=== PATIENT | female | born 1980 | race Caucasian/White ===

== ENCOUNTER 2020-12-15 12:43 | Emergency (ER) | payer MEDICAID, SELFPAY ==
[2020-12-15 12:53] VITALS: BP 176/121; PULSE 109; RESP 18; TEMP 36.8; O2SAT 97; BMI 31.2
[2020-12-15 12:56] VITALS: RESP 18
--- NOTE | 2020-12-15 13:04 | ED_ITS ---
HPI - General Adult General: Chief complaint: General Medical Stated complaint: sore throat, cough, nausea Time Seen by Provider: 12/15/20 12:58 History of Present Illness: HPI narrative: Patient complains about sore throat sinus drainage and then also has symptoms of UTI. Been going on approximately 2 days. Onset (ago): day(s) Associated symptoms: Deny chest pain, dyspnea, headache(s), nausea, rash or vomiting Review of Systems Const: Denies: fever(s), chills or body aches Eyes: Denies: change in vision or blurry vision ENMT: Reports: throat pain and nasal congestion Card: Denies: chest pain or dyspnea on exertion Resp: Denies: dyspnea, productive cough or non-productive cough GI: Denies: abdominal pain, nausea or vomiting : Reports: urinary frequency and urinary urgency Musc: Denies: extremity pain Skin/Breast: Denies: rash Neuro: Denies: headache(s) Psych: Denies: anxiety or depression [place]/Lymph: Denies: easy bruising PFSH ED PFSH: Social History (Updated 07/03/19 @ 10:26 by Genny Garcia LPN) Smoking and tobacco status: former smoker Alcohol intake: never Physical Exam Const: COMMON NORMALS: no acute distress, average body habitus and patient oriented x3 HENMT: COMMON NORMALS: normocephalic HEAD & SCALP: normal to inspection and normocephalic FACE & SINUS: normal facial exam NOSE: Nasal discharge present clear THROAT: posterior oropharynx abnormal erythema Eye: COMMON NORMALS: conjunctivae normal GENERAL EYE: appearance normal, both eyes and all related structures CONJUNCTIVA: Yes conjunctivae normal Neck/C-Spine: COMMON NORMALS: no JVD Chest: COMMONS NORMALS: normal inspection of the chest Resp: COMMON NORMALS: normal respiratory effort and clear to auscultation bilaterally AUSCULTATION: clear to auscultation bilaterally Cardio: COMMON NORMALS: no JVD and regular rhythm RATE: tachycardic RHYTHM: regular rhythm GI: COMMON NORMALS: Normal to inspection, nondistended, normoactive bowel sounds present Extremity: COMMON NORMALS: normal to inspection and full ROM Neuro: COMMON NORMALS: patient oriented x3 Course Vital Signs: Vital signs: Vital Signs Temperature 98.2 F 12/15/20 12:53 Pulse Rate 109 H 12/15/20 12:53 Respiratory Rate 18 12/15/20 12:53 Blood Pressure 176/121 12/15/20 12:53 Pulse Oximetry 97 12/15/20 12:53 Discharge Plan Discharge Patient Disposition: Home Clinical Impression: UTI (urinary tract infection) Qualifiers: Urinary tract infection type: acute cystitis Hematuria presence: without hematuria Qualified Code(s): N30.00 - Acute cystitis without hematuria Acute pharyngitis Qualifiers: Pharyngitis/tonsillitis etiology: unspecified etiology Qualified Code(s): J02.9 - Acute pharyngitis, unspecified Condition: Stable Prescriptions: New cephalexin 500 mg capsule 500 mg PO Q8H 7 Days Qty: 21 RF: 0 Tessalon Perles 100 mg capsule 100 mg PO TID PRN (Reason: cough) Qty: 10 RF: 0 No Action gabapentin 100 mg capsule 100 mg PO TID RF: 0 omeprazole 20 mg capsule,delayed release(DR/EC) 20 mg PO BID RF: 0 lisinopril 20 mg tablet 20 mg PO BID RF: 0 alprazolam 0.5 mg tablet 0.5 mg PO BID RF: 0 tramadol 50 mg tablet 50 mg PO TID PRNRF: 0 Discharge Orders: Discharge ED (Routine); Ordered 12/15/20 Ordered By: Sb Rucker Discharge Diet: Usual diet Discharge Activity: Resume usual activity Patient Instructions: Urinary Tract Infection in Women (ED), Pharyngitis (ED) Activity Restrictions/Additional Instructions: Follow-up with medical provider as directed. Take medications as prescribed. Return to the ER or your medical provider if condition worsens. Please read and understand discharge instructions. If any questions ask please. Coding Level of Care Code ED Machine Preservative Filler for Ivetg Fwd Exam Comprehensive
[2020-12-15 13:47] VITALS: RESP 18
== END 2020-12-15 13:47 | disposition home or self-care (01) ==
PROVIDERS: Emergency Provider Nurse Practitioner Family
DX: J02.9 Acute pharyngitis, unspecified (principal); N30.00 Acute cystitis without hematuria; Z87.891 Personal history of nicotine dependence
CPT/HCPCS: 99281

== ENCOUNTER 2021-04-18 13:26 | Emergency (ER) | payer MEDICAID, SELFPAY ==
[2021-04-18 13:36] VITALS: BP 202/158; PULSE 102; RESP 16; TEMP 36.8; O2SAT 97; BMI 33.2
--- NOTE | 2021-04-18 13:55 | ED_ITS ---
HPI - Abdominal Pain General: Chief Complaint: Abdominal Pain Stated Complaint: severe abd pains n/v Time Seen by Provider: 04/18/21 13:47 Source: patient Mode of arrival: ambulatory Limitations: no limitations History of Present Illness: HPI narrative: Patient is a 40-year-old female who presents to ED today with a complaint of diffuse abdominal pain over the past few days . Patient states it feels like she might have pancreatitis again. Patient states pain has been fairly constant and has been associated with nausea and vomiting. She states she has had about 10 episodes of nonbloody, nonbilious emesis today. She is reporting normal bowel movements. No urinary complaints. No fever, chills, body aches. She was noted to be extremely hypertensive in triage. She states she has not taken her lisinopril in a while secondary to being out of this medication. She reports chronic history of GERD in which she treats with omeprazole. Patient does report alcohol use several times weekly. Denies NSAID use. MD elicited complaint: abdominal pain Onset (ago): day(s) Pain Consistency: constant Location: Diffuse Radiation: none Migration to: no migration Exacerbating factors: nothing Relieving factors: nothing Associated Symptoms: Reports heartburn (chronic-takes omeprazole), nausea and v omiting; Denies change in bowel habits, change in stool character, chills, coffee ground emesis, diarrhea, dysuria, fever(s), hematochezia, hematemesis, melena and syncope Related Data: Patient : No Review of Systems Const: Denies: fever(s), chills, body aches, fatigue or malaise Eyes: Denies: change in vision ENMT: Denies: throat pain, odynophagia, nasal discharge or nasal congestion Card: Denies: chest pain, palpitations, irregular heart rhythm, edema, swelling of feet/ankles, lightheadedness, syncope, pre-syncope, dyspnea on exertion, orthopnea, leg pain with exertion or acrocyanosis Resp: Denies: dyspnea GI: Reports: abdominal pain, nausea, vomiting and heartburn (chronic-takes omeprazole); Denies: hematemesis, coffee ground emesis, diarrhea, change in bowel habits, change in stool character, hematochezia or melena : Denies: flank pain, difficulty voiding, dysuria, urinary frequency, urinary urgency, urinary hesitancy, vaginal bleeding or pelvic pain Musc: Denies: neck pain, back pain, extremity pain or joint pain Skin/Breast: Denies: rash Neuro: Denies: headache(s), numbness in extremities, weakness in extremities, sensory changes, lack of coordination, frequent falls, dizziness, vertigo, confusion, behavioral changes, Slurred speech present, difficulty communicating thoughts or seizure-like activity PFS ED PFSH: Social History (Updated 07/03/19 @ 10:26 by Genny Garcia LPN) Smoking and tobacco status: former smoker Alcohol intake: never Physical Exam Const: COMMON NORMALS: no acute distress, patient oriented x3, no limitations and alert GENERAL APPEARANCE: cooperative NUTRITIONAL APPEARANCE: obese ORIENTATION/CONSCIOUSNESS: Yes awake, Yes oriented to person, Yes oriented to place and Yes oriented to time HENMT: COMMON NORMALS: normocephalic and atraumatic HEAD & SCALP: normal to inspection, normocephalic and atraumatic Resp: COMMON NORMALS: normal respiratory effort and clear to auscultation bilaterally AUSCULTATION: clear to auscultation bilaterally Cardio: COMMON NORMALS: regular rate and regular rhythm RATE: regular rate RHYTHM: regular rhythm GI: COMMON NORMALS: Normal to inspection, nondistended, normoactive bowel sounds present, Soft to palpation, No hepatosplenomegaly present and no masses INSPECTION: Yes normal to inspection and No visible pulsation AUSCULTATION: Yes normoactive bowel sounds PALPATION: Yes Soft to palpation, Yes No hepatosplenomegaly present and No Pulsatile mass present OTHER: patient was talking the whole time during abdominal exam and did not grimace or guard at all during light/deep palpation : COMMON NORMALS: Yes no CVA tenderness BLADDER/KIDNEY EXAM: Yes no CVA tenderness Back/Pelvis: COMMON NORMALS: no CVA tenderness, thoracic and lumbar spine normal to inspection, no thoracic nor lumbar tenderness and thoraco-lumbar ROM normal LUMBAR SPINE/LOWER BACK: Yes straight leg raise negative bilaterally Extremity: COMMON NORMALS: normal to inspection GENERAL: Yes normal exam except as noted Neuro: ELIA COMA SCALE: document GCS findings Elia coma scale eye opening: Spontaneous [place] coma scale verbal response: Orientated [place] coma scale motor response: Obey commands Elia coma scale total score: 15 COMMON NORMALS: patient oriented x3, CN's II-XII intact bilaterally, moves all extremities, no focal motor deficits, no sensory deficits noted and gait normal SENSORIUM/ORIENTATION: Yes alert, Yes oriented to person, Yes oriented to place and Yes oriented to time Skin: COMMON NORMALS: negative for no rashes or lesions noted GENERAL SKIN EXAM: rashes and/or lesions noted Course Vital Signs: Vital signs: Vital Signs Temperature 98.2 F 04/18/21 13:36 Pulse Rate 87 04/18/21 17:16 Respiratory Rate 14 04/18/21 14:57 Blood Pressure 192/97 04/18/21 17:16 Pulse Oximetry 96 04/18/21 17:16 MDM - Abdominal Pain MDM Narrative: Medical decision making narrative: Patient is a 40-year-old female here for diffuse abdominal pain over the past few days. Physical exam does not reveal significant abdominal tenderness. She has positive bowel sounds. Labs are unremarkable. UA does show findings consistent with UTI. This will be cultured. CT scan showing probable enteritis. Will place patient on antibiotics for the UTI and recommend clear liquid/bland diet with advancing as tolerated. Return to ED precautions given. She will be given refills for her BP med and recommend she keep BP log to discuss with PCP. BP 160s/90s during my last assessment. She was given oral K+ for her mild hypokalemia. Mag normal. Recommend this gets rechecked through PCP as well. Lab Data: Labs: Lab Results 04/18/21 04/18/21 04/18/21 14:54 14:54 14:54 WBC 9.3 10^3/uL 10^3/ uL (4.0-10.0) RBC 5.24 10^6/uL 10^6 /uL (4.1-5.3) Hgb 15.9 g/dL H g/dL (11.5-15.3) Hct 47.8 % H % (37.0-47.0) MCV 91.2 fl fl (81-99) MCH 30.3 pg pg (28.0-34.0) MCHC 33.3 g/dL g/dL (30.0-36.0) RDW 13.0 % % (12.1-15.1) Plt Count 320 10^3/cmm 10^3 /cmm (130-400) MPV 10.7 fL H fL (7.4-10.4) Neut % (Auto) 68.0 % % Lymph % (Auto) 23.3 % % [place] % (Auto) 6.5 % % Eos % (Auto) 1.1 % % Baso % (Auto) 0.9 % % Neut # (Auto) 6.34 10^3/uL 10^3 /uL (1.8-7.7) Lymph # (Auto) 2.2 10^3/uL 10^3/ uL (0.8-4.8) [place] # (Auto) 0.6 10^3/uL 10^3/ uL (0.2-0.9) Eos # (Auto) 0.1 10^3/uL 10^3/ uL (0.0-0.8) Baso # (Auto) 0.1 10^3/uL 10^3/ uL (0.0-0.1) Nucleated RBC % (a uto) 0 % % Nucleated RBCs # 0.0 /100WBC /100W BC Sodium 137 mmol/L mmol/L (136-145) Potassium 3.1 mmol/L L mmol /L (3.5-5.1) Chloride 97 mmol/L L mmol/ L (98-107) Carbon Dioxide 30 mmol/L H mmol/ L (22-29) Anion Gap 13.1 (5-19) BUN 7 mg/dL mg/dL (6-20) Creatinine 0.5 mg/dL mg/dL (0.5-0.9) GFR Calculation 135.3 mL/min H mL /min (90-130) Glucose 103 mg/dL mg/dL (65-115) Calculated Osmolal ity 282 mOsm/kg L mOs m/kg (285-295) Calcium 9.2 mg/dL mg/dL (8.5-10.5) Magnesium Total Bilirubin 0.5 mg/dL mg/dL (0.15-1.2) AST 37 U/L H U/L (0-32) ALT 30 U/L U/L (0-33) Alkaline Phosphata se 80 IU/L IU/L (35-105) Total Protein 7.4 g/dL g/dL (6.6-8.7) Albumin 4.1 g/dL g/dL (3.5-5.2) Globulin 3.3 g/dL g/dL (1.3-4.6) Lipase 46 U/L U/L (13-60) HCG, Qual Negative (Negative) Urine Color Urine Appearance Urine pH Ur Specific Gravit y Urine Protein Urine Glucose (UA) Urine Ketones Urine Blood Urine Nitrate Urine Bilirubin Urine Urobilinogen Ur Leukocyte Naty ase Urine RBC Urine WBC Ur Squamous Epith Cells Amorphous Sediment Urine Bacteria Urine Mucus 04/18/21 04/18/21 14:54 15:55 WBC RBC Hgb Hct MCV MCH MCHC RDW Plt Count MPV Neut % (Auto) Lymph % (Auto) [place] % (Auto) Eos % (Auto) Baso % (Auto) Neut # (Auto) Lymph # (Auto) [place] # (Auto) Eos # (Auto) Baso # (Auto) Nucleated RBC % (a uto) Nucleated RBCs # Sodium Potassium Chloride Carbon Dioxide Anion Gap BUN Creatinine GFR Calculation Glucose Calculated Osmolal ity Calcium Magnesium 2.0 mg/dL mg/dL (1.7-2.3) Total Bilirubin AST ALT Alkaline Phosphata se Total Protein Albumin Globulin Lipase HCG, Qual Urine Color Yellow (Yellow) Urine Appearance Sl hazy (CLEAR) Urine pH 7 (5-7) Ur Specific Gravit y 1.010 (1.005-1.030) Urine Protein 1+ H (Negative) Urine Glucose (UA) Norm (Normal) Urine Ketones Negative (Negative) Urine Blood 3+ H (Negative) Urine Nitrate Negative (Negative) Urine Bilirubin Neg (Negative) Urine Urobilinogen Norm mg/dL mg/dL (Negative) Ur Leukocyte Naty ase 1+ H (Negative) Urine RBC 25-40 /hpf H /hpf (0-2) Urine WBC 25-40 /hpf H /hpf (0-5) Ur Squamous Epith Cells 15-25 /hpf H /hpf (0-5) Amorphous Sediment Not Reportable Urine Bacteria 1+ /hpf H /hpf (NONE) Urine Mucus 2+ /hpf /hpf Imaging Data ^: CT Abd/Pel: Radiologist's impression: [address] [id number] Scan ReportSigned Patient: Valerio Lucero #: [id number]: [id number]#:[id number]/Sex: 40 / FADM Date: 04/18/21Loc: ERRoom/Bed:Attending Dr: Ordering Provider/Ordering MD: Lacey Olson Date of Service: 04/18/21 Procedure(s): CT abdomen pelvis w con* [id number] Accession Number(s): [id number] Report Number: [id number] PROCEDURE INFORMATION: Exam: CT Abdomen And Pelvis With Contrast Exam date and time: 04/18/2021 1:54 PM Age: 40 years old Clinical indication: Abdominal pain; Generalized; Prior surgery; Surgery date: 6+ months; Surgery type: Tubal; Patient HX: C/O abd pain w n/v x 2 days; Additional info: Diffuse abdominal pain; N/v TECHNIQUE: Imaging protocol: Computed tomography of the abdomen and pelvis with contrast. Radiation optimization: All CT scans at this facility use at least one of these dose optimization techniques: automated exposure control; mA and/or kV adjustment per patient size (includes targeted exams where dose is matched to clinical indication); or iterative reconstruction. Contrast material: OMNI 300; Contrast volume: 95 ml; Contrast route: INTRAVENOUS (IV); COMPARISON: CT Abdomen/Pelvis Renal [id number] 07/23/2017 8:48 AM RADIATION DOSE METRICS: Total DLP (mGy-cm): 1615.04 FINDINGS: Liver: Hepatic steatosis. No mass. Gallbladder and bile ducts: Normal. No calcified stones. No ductal dilation. Pancreas: Normal. No ductal dilation. Spleen: Normal. No splenomegaly. Adrenal glands: Normal. No mass. Kidneys and ureters: Some interval increase in size of a hemorrhagic cyst again in the lower pole of the right kidney measuring up to 1.5 cm on today's study. Some interval increase in size of a hemorrhagic cyst in the upper pole of the left kidney measuring 2 cm on today's study. Additional scattered cysts seen in both kidneys. No hydronephrosis. Stomach and bowel: There is some mildly distended fluid-filled loops of distal duodenum and jejunal loops up to 3 cm without evident transition point. Appendix: No evidence of appendicitis. Intraperitoneal space: Unremarkable. No free air. No significant fluid collection. Vasculature: Unremarkable. No abdominal aortic aneurysm. Lymph nodes: Unremarkable. No enlarged lymph nodes. Urinary bladder: Unremarkable as visualized. Reproductive: Unremarkable as visualized. Bones/joints: No acute fracture. Soft tissues: Unremarkable. CT/CT abdomen pelvis w con* [id number] IMPRESSION: Mildly distended fluid-filled loops of the distal duodenum and jejunum without evident transition point. Findings most likely reflect a nonspecific enteritis as opposed to a low-grade bowel obstruction. COMMENTS: Consistent with the [employer]'s Incidental Findings Committee white paper (J Am Nika Radiol 2018): Any incidental renal lesion less than 1 cm or classified as too small to characterize, or any incidental cystic renal lesion characterized as simple-appearing, is likely benign. No follow-up imaging is recommended for these lesions per consensus recommendations based on imaging criteria. Radiation Dose CTDIVOL = (mGy): DLP = 1615.04 (mGy-cm) Dictated By:Rufus Crockett DOSigned By:Rufus Crockett DOSigned Date/Time:04/18/21 [id number]/ 1354 Discharge Plan Discharge Patient Disposition: Home Clinical Impression: Hypokalemia UTI (urinary tract infection) Qualifiers: Urinary tract infection type: acute cystitis Hematuria presence: with hematuria Qualified Code(s): N30.01 - Acute cystitis with hematuria Hypertension Qualifiers: Hypertension type: primary hypertension Qualified Code(s): I10 - Essential (primary) hypertension Condition: Stable Prescriptions: New cephalexin 500 mg capsule 500 mg PO Q6H 7 Days Qty: 28 RF: 0 Continued lisinopril 20 mg tablet 20 mg PO BID Qty: 60 RF: 0 No Action gabapentin 100 mg capsule 100 mg PO TID RF: 0 omeprazole 20 mg capsule,delayed release(DR/EC) 20 mg PO BID MDD see pharmacy comment RF: 0 Discharge Orders: Discharge ED (Routine); Ordered 04/18/21 Ordered By: Lacey Olson Patient Instructions: Urinary Tract Infection in Women (DC) Activity Restrictions/Additional Instructions: As we discussed begin your antibiotics immediately. Begin taking your blood pressure medication as prescribed and keep a blood pressure log to follow-up with primary care this week. They need to recheck your potassium as it was mildly low today. You need to begin a clear liquid and bland diet over the next 24 to 48 hours and slowly advance as tolerated as this will help with your abdominal discomfort. You need to return to the emergency department for worsening abdominal pain, inability to pass gas or have a bowel movement, severe flank pain, fevers, repetitive episodes of vomiting or diarrhea, or any other concerns you may have. Coding Level of Care Code ED Grant Manager for Chg Fwd Exam Comprehensive
[2021-04-18] MEDS: lisinopril 10 mg Tablet 20 MG PO (14:56)
[2021-04-18 14:57] VITALS: RESP 14
[2021-04-18] MEDS: morphine 4 mg/mL SDV 1 mL IVP (14:57)
[2021-04-18] MEDS: labetalol 5 mg/mL SDV 20mL 10 MG IVP (14:57)
[2021-04-18] MEDS: ondansetron 2 mg/ML SDV 2 mL 4 MG IVP (14:59)
[2021-04-18] MEDS: sodium chloride 0.9% 1,000 ML 999 ML IV (15:00)
[2021-04-18 15:18] VITALS: BP 177/109; PULSE 82; O2SAT 92
[2021-04-18 15:27] LABS: Basophils # 0.1 10^3/uL (0.0-0.1); Basophils % 0.9 %; Eosinophils # 0.1 10^3/uL (0.0-0.8); Eosinophils % 1.1 %; Hematocrit 47.8 % (37.0-47.0); Hemoglobin 15.9 g/dL (11.5-15.3); Lymphocytes # 2.2 10^3/uL (0.8-4.8); Lymphocytes % 23.3 %; Mean Corpuscular HGB Conc 33.3 g/dL (30.0-36.0); Mean Corpuscular Hemoglobin 30.3 pg (28.0-34.0); Mean Corpuscular Volume 91.2 fl (81-99); Mean Platelet Volume 10.7 fL (7.4-10.4); Monocytes # 0.6 10^3/uL (0.2-0.9); Monocytes % 6.5 %; Neutrophils # 6.34 10^3/uL (1.8-7.7); Nucleated Red Blood Cells % 0 %; Platelet Count 320 10^3/cmm (130-400); Red Blood Count 5.24 10^6/uL (4.1-5.3); White Blood Count 9.3 10^3/uL (4.0-10.0)
[2021-04-18 15:44] LABS: Alanine Aminotransferase 30 U/L (0-33); Albumin Level 4.1 g/dL (3.5-5.2); Alkaline Phosphatase 80 IU/L (35-105); Anion Gap 13.1 (5-19); Aspartate Amino Transferase 37 U/L (0-32); Blood Urea Nitrogen 7 mg/dL (6-20); Calcium 9.2 mg/dL (8.5-10.5); Carbon Dioxide 30 mmol/L (22-29); Chloride 97 mmol/L (98-107); Globulin 3.3 g/dL (1.3-4.6); Glomerular Filtration Rate 135.3 mL/min (90-130); Glucose 103 mg/dL (65-115); Lipase 46 U/L (13-60); Osmolality Calculated 282 mOsm/kg (285-295); Potassium 3.1 mmol/L (3.5-5.1); Sodium 137 mmol/L (136-145); Total Bilirubin 0.5 mg/dL (0.15-1.2); Total Protein 7.4 g/dL (6.6-8.7)
[2021-04-18 15:54] LABS: HCG, Serum Qual Negative (Negative)
[2021-04-18 16:00] VITALS: BP 164/105; PULSE 87; O2SAT 98
[2021-04-18] MEDS: iohexol 300 mg/mL 100 mL Btl IV (16:08)
[2021-04-18] MEDS: potassium chloride ER 20 mEq Tablet 40 MEQ PO (16:21)
[2021-04-18 16:23] LABS: Urine Appearance SL Hazy (CLEAR); Urine Color Yellow (Yellow)
[2021-04-18 16:24] LABS: Add Urine Microscopic? YES; Bilirubin Urine Neg (Negative); Blood Urine 3+ (Negative); Glucose Urine UA Norm (Normal); Ketones Urine Negative (Negative); Leukocyte Esterase Urine 1+ (Negative); Nitrate Urine Negative (Negative); Protein Urine 1+ (Negative); Urobilinogen Urine Norm (Negative); pH Urine 7 (5-7)
[2021-04-18 16:27] LABS: Add Urine Culture? No; Bacteria Urine 1+ /hpf; Mucus Urine 2+ /hpf; RBC Urine 25-40 /hpf (0-2); Squamous Epithelial Cell Urine 15-25 /hpf (0-5); WBC Urine 25-40 /hpf (0-5)
[2021-04-18 17:16] VITALS: BP 192/97; PULSE 87; O2SAT 96
== END 2021-04-18 17:19 | disposition home or self-care (01) ==
PROVIDERS: Emergency Provider Physician Assistant
DX: N30.01 Acute cystitis with hematuria (principal); I10 Essential (primary) hypertension; E87.6 Hypokalemia; Z87.891 Personal history of nicotine dependence
CPT/HCPCS: 74177; 80053; 81001; 83690; 83735; 84703; 85025; 96361; 96374; 96375; 99284; J2270; J2405; J3490; J7030; Q9967

== ENCOUNTER 2021-08-31 16:03 | Emergency (ER) | payer MEDICAID, SELFPAY ==
[2021-08-31 16:09] VITALS: BP 209/142; PULSE 103; RESP 18; TEMP 36.3; O2SAT 97; BMI 30.2
[2021-08-31 16:12] VITALS: BP 163/114; RESP 22; O2SAT 92
--- NOTE | 2021-08-31 16:17 | CTR_ITS ---
PROCEDURE INFORMATION: Exam: CT Abdomen And Pelvis With Contrast Exam date and time: 08/31/2021 4:17 PM Age: 41 years old Clinical indication: Abdominal pain; Generalized; Patient HX: C/O abd pain w n/v - HX of pancreatitis TECHNIQUE: Imaging protocol: Computed tomography of the abdomen and pelvis with contrast. Radiation optimization: All CT scans at this facility use at least one of these dose optimization techniques: automated exposure control; mA and/or kV adjustment per patient size (includes targeted exams where dose is matched to clinical indication); or iterative reconstruction. Contrast material: OMNI 300; Contrast volume: 95 ml; Contrast route: INTRAVENOUS (IV); COMPARISON: CT abdomen pelvis w con* [id number] 04/18/2021 4:07 PM RADIATION DOSE METRICS: Total DLP (mGy-cm): 1549.52 FINDINGS: Mediastinal space: Mild wall thickening is seen in the distal esophagus. A small hiatal hernia is appreciated. Liver: Normal. No mass. Gallbladder and bile ducts: Normal. No calcified stones. No ductal dilation. Pancreas: Normal. No ductal dilation. Spleen: Normal. No splenomegaly. Adrenal glands: Normal. No mass. Kidneys and ureters: Mild scarring is present in both kidneys. Bilateral renal hypodense lesions are again seen, which appear stable. The largest lesion measures 2 cm (left kidney). Stomach and bowel: Multiple loops of small bowel are mildly dilated with fluid in the mid to lower abdomen. No focal point of obstruction is seen. Appendix: The appendix is normal. Intraperitoneal space: Unremarkable. No free air. No significant fluid collection. Vasculature: Unremarkable. No abdominal aortic aneurysm. Lymph nodes: Unremarkable. No enlarged lymph nodes. Urinary bladder: Unremarkable as visualized. Reproductive: The uterus and ovaries appear normal. Bones/joints: Mild degenerative changes are present in the lower lumbar spine. No acute fracture. Soft tissues: Unremarkable. CT/CT abdomen pelvis w con* [id number] IMPRESSION: 1. Possible mild enteritis. 2. Small hiatal hernia and mild distal esophagitis. COMMENTS: Consistent with the [employer]'s Incidental Findings Committee white paper (J Am Nika Radiol 2018): Any incidental renal lesion less than 1 cm or classified as too small to characterize, or any incidental cystic renal lesion characterized as simple-appearing, is likely benign. No follow-up imaging is recommended for these lesions per consensus recommendations based on imaging criteria.
--- NOTE | 2021-08-31 16:18 | W.ED.ABDPA2 ---
HPI - Abdominal Pain General: Chief Complaint: Abdominal Pain Stated Complaint: Stomach pain, Vomiting Time Seen by Provider: 08/31/21 16:14 Source: patient Mode of arrival: ambulatory Limitations: no limitations History of Present Illness: 41-year-old female states that she has been having epigastric abdominal pain since this morning. States been a sharp pain she rates an 8 out of 10. States she is also had vomiting with the pain. She has had pancreatitis in the past denies any abdominal surgeries. She does have a history of high blood pressure and states she has been out of her blood pressure meds for the last month she is hypertensive here she denies any chest pain denies any headache denies any worsening improving factors. Associated Symptoms: Reports nausea and vomiting; Denies chills, dysuria and fever(s) Review of Systems Const: Denies: fever(s), chills, body aches or change in appetite Eyes: Denies: blurry vision or eye discomfort ENMT: Denies: throat pain or dental pain Card: Denies: chest pain Resp: Denies: dyspnea GI: Reports: abdominal pain, nausea and vomiting : Denies: dysuria Musc: Denies: neck pain or back pain Skin/Breast: Denies: rash Neuro: Denies: headache(s) Psych: Denies: depression Eugene/Lymph: Denies: easy bruising All/Imm: Denies: urticaria PFSH ED PFSH: Medical History Hypertension Social History Smoking and tobacco status: former smoker Alcohol intake: never Physical Exam Const: COMMON NORMALS: no acute distress, patient oriented x3 and healthy appearing HENMT: COMMON NORMALS: normocephalic and atraumatic HEAD & SCALP: normocephalic and atraumatic Eye: COMMON NORMALS: Equal, round and reactive pupils present and EOMs intact bilaterally PUPIL: Yes Equal, round and reactive pupils present Neck/C-Spine: COMMON NORMALS: full ROM and supple Chest: COMMONS NORMALS: normal inspection of the chest and normal palpation of entire chest wall Resp: COMMON NORMALS: normal respiratory effort, No retractions, No use of accessory muscles and clear to auscultation bilaterally AUSCULTATION: clear to auscultation bilaterally Cardio: COMMON NORMALS: regular rate, regular rhythm and No murmurs present (Cardio) RATE: regular rate RHYTHM: regular rhythm GI: COMMON NORMALS: Normal to inspection, nondistended, normoactive bowel sounds present, Soft to palpation and no masses PALPATION: Yes Soft to palpation and Yes Tenderness to palpation present (GI) (epigastric tenderness) Extremity: COMMON NORMALS: normal to inspection and full ROM Neuro: COMMON NORMALS: patient oriented x3, moves all extremities and no focal motor deficits Psych: COMMON NORMALS: mental status grossly normal, Normal thought process present and cooperative THOUGHT PROCESS: Normal thought process present Skin: COMMON NORMALS: no rashes or lesions noted and no wounds GENERAL SKIN EXAM: no rashes or lesions noted Course Vital Signs: Vital signs: Vital Signs Temperature 97.4 F L 08/31/21 16:09 Pulse Rate 84 08/31/21 17:43 Respiratory Rate 20 H 08/31/21 17:43 Blood Pressure 155/110 08/31/21 17:43 Pulse Oximetry 96 08/31/21 17:43 MDM - Abdominal Pain Medical Decision Making Patient presents with abdominal pain CT showed no acute findings blood work here is all normal as well. She is stable for discharge is to follow-up PCP and return if worsening. Lab Data : 08/31/21 16:30 08/31/21 16:30 Labs/Radiology: Radiology Impressions Abdomen/Pelvis CT 08/31/21 16:17 IMPRESSION: 1. Possible mild enteritis. 2. Small hiatal hernia and mild distal esophagitis. COMMENTS: Consistent with the [place] [employer]'s Incidental Findings Committee white paper (J Am Nika Radiol 2018): Any incidental renal lesion less than 1 cm or classified as too small to characterize, or any incidental cystic renal lesion characterized as simple-appearing, is likely benign. No follow-up imaging is recommended for these lesions per consensus recommendations based on imaging criteria. Laboratory Results WBC 13.8 10^3/uL (4.0-10.0) H 08/31/21 16:30 RBC 5.53 10^6/uL (4.1-5.3) H 08/31/21 16:30 Hgb 15.7 g/dL (11.5-15.3) H 08/31/21 16:30 Hct 47.1 % (37.0-47.0) H 08/31/21 16:30 MCV 85.2 fl (81-99) 08/31/21 16: MCH 28.4 pg (28.0-34.0) 08/31/21 16: MCHC 33.3 g/dL (30.0-36.0) 08/31/21 16: RDW 14.4 % (12.1-15.1) 08/31/21: Plt Count 278 10^3/cmm (130-400) 08/31/21 16: MPV 10.1 fL (7.4-10.4) 08/31/21 16: Neut % (Auto) 86.3 % 08/31/21 16: Lymph % (Auto) 8.8 % 08/31/21: Mcd[place] % (Auto) 2.8 % 08/31/21: Eos % (Auto) 1.5 % 08/31/21 16: Baso % (Auto) 0.3 % 08/31/21: Neut # (Auto) 11.90 10^3/uL (1.8-7.7) H 08/31/21 16: Lymph # (Auto) 1.2 10^3/uL (0.8-4.8) 08/31/21: Mcdowell # (Auto) 0.4 10^3/uL (0.2-0.9) 08/31/21 16:30 Eos # (Auto) 0.2 10^3/uL (0.0-0.8) 08/31/21: Baso # (Auto) 0.0 10^3/uL (0.0-0.1) 08/31/21: Nucleated RBC % (auto) 0 % 08/31/21: Nucleated RBCs # 0.0 /100WBC 08/31/21 16: Sodium 138 mmol/L (136-145) 08/31/21 16: Potassium 3.0 mmol/L (3.5-5.1) L 08/31/21 16: Chloride 99 mmol/L (98-107) 08/31/21 16: Carbon Dioxide 27 mmol/L (22-29) 08/31/21 16: Anion Gap 15.0 (5-19) 08/31/21 16:30 BUN 13 mg/dL (6-20) 08/31/21 16:30 Creatinine 0.6 mg/dL (0.5-0.9) 08/31/21 16:30 GFR Calculation 109.1 mL/min (90-130) 08/31/21 16:30 Glucose 140 mg/dL (65-115) H 08/31/21 16:30 Calculated Osmolality 288 mOsm/kg (285-295) 08/31/21 16:30 Calcium 8.7 mg/dL (8.5-10.5) 08/31/21 16:30 Total Bilirubin 0.6 mg/dL (0.15-1.2) 08/31/21 16:30 AST 15 U/L (0-32) 08/31/21 16:30 ALT 16 U/L (0-33) 08/31/21 16:30 Alkaline Phosphatase 100 IU/L (35-105) 08/31/21 16:30 Total Protein 7.4 g/dL (6.6-8.7) 08/31/21 16:30 Albumin 4.4 g/dL (3.5-5.2) 08/31/21 16:30 Globulin 3.0 g/dL (1.3-4.6) 08/31/21 16:30 Lipase 27 U/L (13-60) 08/31/21 16:30 Urine Color Yellow (Yellow) 08/31/21 16:50 Urine Appearance Clear (CLEAR) 08/31/21 16:50 Urine pH 6 (5-7) 08/31/21 16:50 Ur Specific [place] 1.025 (1.005-1.030) 08/31/21 16:50 Urine Protein 3+ (Negative) H 08/31/21 16:50 Urine Glucose (UA) Norm (Normal) 08/31/21 16:50 Urine Ketones 1+ (Negative) H 08/31/21 16:50 Urine Blood Neg (Negative) 08/31/21 16:50 Urine Nitrate Negative (Negative) 08/31/21 16:50 Urine Bilirubin 1+ (Negative) H 08/31/21 16:50 Urine Urobilinogen 1 mg/dL (Negative) H 08/31/21 16:50 Ur Leukocyte Esterase Trace (Negative) H 08/31/21 16:50 Urine RBC None /hpf (0-2) 08/31/21 16:50 Urine WBC 0-4 /hpf (0-5) H 08/31/21 16:50 Ur Squamous Epith Cells 0-4 /hpf (0-5) H 08/31/21 16:50 Amorphous Sediment Not Reportable 08/31/21 16:50 Urine Bacteria 1+ /hpf (NONE) H 08/31/21 16:50 Urine Mucus 1+ /hpf 08/31/21 16:50 EKG Data EKG 1: I personally reviewed and interpreted this EKG as follows: EKG interpretation date: 08/31/21 EKG interpretation time: 16:22 Interpretation: nsr hr [address] or t wave abnormalities qrs 114 qtc 477 Discharge Plan Discharge Patient Disposition: Home Clinical Impression: Abdominal pain Qualifiers: Abdominal location: generalized Qualified Code(s): R10.84 - Generalized abdominal pain Hypertension Qualifiers: Hypertension type: unspecified Qualified Code(s): I10 - Essential (primary) hypertension Condition: Stable Prescriptions: New hydrocodone-acetaminophen 5-325 mg tablet 1 tab PO Q6H PRN (Reason: pain) Qty: 14 0RF ondansetron 4 mg tablet,disintegrating 4 mg PO Q6H PRN (Reason: nausea and vomiting) Qty: 14 0RF Continued lisinopril 20 mg tablet 20 mg PO BID Qty: 60 0RF No Action gabapentin 100 mg capsule 100 mg PO TID 0RF omeprazole 20 mg capsule,delayed release(DR/EC) 20 mg PO BID MDD see pharmacy comment 0RF Discharge Orders: Discharge ED (Routine); Ordered 08/31/21 Ordered By: Jim Murphy Referrals: Roger Wolfe MD [Physician] - 1-3 days Discharge Diet: Advance as tolerated Discharge Activity: Resume usual activity Patient Instructions: Abdominal Pain (ED), Opioid Safety Coding Level of Care Code ED Sound Assistant for Chg Fwd Exam Comprehensive
[2021-08-31] MEDS: labetalol 5 mg/mL SDV 20mL 10 MG IVP (16:34)
[2021-08-31 16:35] VITALS: RESP 22
[2021-08-31] MEDS: ondansetron 2 mg/ML SDV 2 mL 4 MG IVP (16:35)
[2021-08-31] MEDS: HYDROmorphone 1 mg/mL INJ 1 mL IVP (16:35)
--- NOTE | 2021-08-31 16:40 | ECG_ITS ---
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 Measurements Intervals [place] Rate: 75 P: 62 [place]: 137 QRS: 30 QRSD: 114 T: 213 QT: 448 QTc: 503 Interpretive Statements SINUS RHYTHM MODERATE INTRAVENTRICULAR CONDUCTION DELAY [110+ ms QRS DURATION] MODERATE T-WAVE ABNORMALITY, CONSIDER LATERAL ISCHEMIA [-0.1+ mV T-WAVE IN I/aVL/V5/V6] No previous ECG available for comparison Electronically Signed On 09-01-2021 21:10:03 CDT by Vahid Hackett M.D. [email or web address] branch [email or web address] county medical center.[place]/store/[id number]
[2021-08-31 16:41] LABS: Basophils % 0.3 %; Eosinophils # 0.2 10^3/uL (0.0-0.8); Eosinophils % 1.5 %; Hematocrit 47.1 % (37.0-47.0); Hemoglobin 15.7 g/dL (11.5-15.3); Lymphocytes # 1.2 10^3/uL (0.8-4.8); Lymphocytes % 8.8 %; Mean Corpuscular HGB Conc 33.3 g/dL (30.0-36.0); Mean Corpuscular Hemoglobin 28.4 pg (28.0-34.0); Mean Corpuscular Volume 85.2 fl (81-99); Mean Platelet Volume 10.1 fL (7.4-10.4); Monocytes # 0.4 10^3/uL (0.2-0.9); Monocytes % 2.8 %; Neutrophils % 86.3 %; Nucleated Red Blood Cells % 0 %; Platelet Count 278 10^3/cmm (130-400); Red Blood Count 5.53 10^6/uL (4.1-5.3); Red Cell Distribution Width 14.4 % (12.1-15.1); White Blood Count 13.8 10^3/uL (4.0-10.0)
[2021-08-31 16:42] VITALS: BP 164/108; RESP 20; O2SAT 91
[2021-08-31] MEDS: sodium chloride 0.9% 1,000 ML 999 ML IV (16:56)
[2021-08-31 17:01] LABS: Alanine Aminotransferase 16 U/L (0-33); Albumin Level 4.4 g/dL (3.5-5.2); Alkaline Phosphatase 100 IU/L (35-105); Aspartate Amino Transferase 15 U/L (0-32); Blood Urea Nitrogen 13 mg/dL (6-20); Calcium 8.7 mg/dL (8.5-10.5); Carbon Dioxide 27 mmol/L (22-29); Chloride 99 mmol/L (98-107); Creatinine Clr Calc Pharmacy 110.1433; Glomerular Filtration Rate 109.1 mL/min (90-130); Glucose 140 mg/dL (65-115); Lipase 27 U/L (13-60); Osmolality Calculated 288 mOsm/kg (285-295); Sodium 138 mmol/L (136-145); Total Bilirubin 0.6 mg/dL (0.15-1.2); Total Protein 7.4 g/dL (6.6-8.7)
[2021-08-31] MEDS: iohexol 300 mg/mL 100 mL Btl IV (17:02)
[2021-08-31] MEDS: potassium chloride ER 20 mEq Tablet 40 MEQ PO (17:28)
[2021-08-31 17:33] LABS: Glucose Urine UA Norm (Normal); Ketones Urine 1+ (Negative); Protein Urine 3+ (Negative); Specific Gravity, Urine 1.025 (1.005-1.030); Urine Appearance Clear (CLEAR); Urine Color Yellow (Yellow); pH Urine 6 (5-7)
[2021-08-31 17:34] LABS: Add Urine Microscopic? YES; Bilirubin Urine 1+ (Negative); Blood Urine Neg (Negative); Leukocyte Esterase Urine Trace (Negative); Nitrate Urine Negative (Negative); Urobilinogen Urine 1 mg/dL (Negative)
[2021-08-31] MEDS: hyDRALAzine 20 mg/mL INJ 1 mL 10 MG IVP (17:36)
[2021-08-31 17:37] VITALS: BP 184/121; PULSE 77; RESP 18; O2SAT 96
[2021-08-31 17:39] LABS: Bacteria Urine 1+ /hpf; Mucus Urine 1+ /hpf; Squamous Epithelial Cell Urine 0-4 /hpf (0-5); WBC Urine 0-4 /hpf (0-5)
[2021-08-31 17:40] LABS: Add Urine Culture? No
[2021-08-31 17:43] VITALS: BP 155/110; PULSE 84; RESP 20; O2SAT 96
--- NOTE | 2021-08-31 17:54 | PC.NURSE ---
Trying to contact her boyfriend for a ride home.
--- NOTE | 2021-09-02 11:56 | DCPLANNER ---
Addendum entered by Alexia Padgett 09/08/21 08:27: efficiency manager was contacted by general surgery stating that clinic has made several attempts to contact patient to schedule an appointment and has not been able to reach patient. Clinic mailed a letter to patient, asking patient to contact the general surgery clinic to schedule an appointment. Original Note: efficiency manager had message to schedule a follow up appointment for patient with general surgery. efficiency manager emailed patients information to both Radha and Marie at [facility] General Surgery / ENT Clinic. Patients information will be printed and reviewed. Clinic will call patient with appointment information.
== END 2021-08-31 18:16 | disposition home or self-care (01) ==
PROVIDERS: Emergency Provider Emergency Medicine
DX: R10.84 Generalized abdominal pain (principal); I10 Essential (primary) hypertension
CPT/HCPCS: 74177; 80053; 81001; 83690; 85025; 93005; 96361; 96374; 96375; 99284; J0360; J1170; J2405; J3490; J7030; Q9967

== ENCOUNTER 2022-01-20 09:17 | Emergency (ER) | payer MEDICAID, SELFPAY ==
[2022-01-20 09:43] VITALS: BP 197/134; PULSE 95; RESP 16; TEMP 36.6; O2SAT 97; BMI 29.0
--- NOTE | 2022-01-20 12:52 | ECG_ITS ---
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 Measurements Intervals [place] Rate: 92 P: 64 [place]: 146 QRS: 4 QRSD: 88 T: 81 QT: 367 QTc: 456 Interpretive Statements SINUS RHYTHM POSSIBLE RIGHT ATRIAL ENLARGEMENT [0.25mV P WAVE] POSSIBLE RIGHT VENTRICULAR CONDUCTION DELAY [RSR (QR) IN V1/V2] NONSPECIFIC T-WAVE ABNORMALITY Compared to ECG 08/31/2021 16:22:35 Intraventricular conduction delay no longer present Possible ischemia no longer present T-wave abnormality still present Electronically Signed On 01-20-2022 21:13:18 CDT by Sosa Young M.D. [email or web address] [email or web address] county medical center.[place]/store/[id number]
--- NOTE | 2022-01-20 12:54 | ED_ITS ---
HPI - Abdominal Pain General: Chief Complaint: Abdominal Pain Stated Complaint: Stomach pain, nausea Time Seen by Provider: 01/20/22 12:44 Source: patient Mode of arrival: ambulatory Limitations: no limitations History of Present Illness: 41-year-old female presents emergency room complaining of abdominal pain. Patient states patient began last night. She did drink fairly large amount of hard liquor last night. Patient reports she previously been a very heavy drinker she has had episodes of pancreatitis in the past. She is post to be in antihypertensives but has been out of her medications for some time she also tells me she used to get regular take hydrocodone and Xanax but no one would fill them anymore so she has not been able to get any of those. No hematemesis coffee-ground emesis. No hematochezia or melena. MD elicited complaint: abdominal pain Pertinent past history: gastritis and other (Alcohol abuse) Onset (ago): minute(s) Pain Consistency: constant Location: Epigastric Severity: moderate Quality: cramping Radiation: none Migration to: no migration Exacerbating factors: nothing Relieving factors: nothing Associated Symptoms: Reports bloating and poor appetite; Denies anorexia, belching, change in bowel habits, change in stool character, chills, coffee ground emesis, constipation, GI cramping, diarrhea, dyspepsia, dysuria, excessive flatus, fever(s), heartburn, hematochezia, hematuria, hematemesis, fecal incontinence, loose stools, melena, nausea, syncope and vomiting Related Data: Date of Last Menstrual Period: 12/20/21 Review of Systems Const: Denies: fever(s) or chills ENMT: Denies: throat pain, ear or mastoid pain, nasal discharge or nasal congestion Card: Denies: syncope Resp: Denies: dyspnea, productive cough or non-productive cough GI: Reports: bloating; Denies: nausea, vomiting, hematemesis, coffee ground emesis, heartburn, diarrhea, constipation, GI cramping, belching, excessive flatus, fecal incontinence, change in bowel habits, change in stool character, hematochezia or melena : Denies: dysuria or hematuria Skin/Breast: Denies: rash or pruritus PFS ED PFSH: Medical History Anxiety History of alcohol abuse Hypertension Surgical History History of tubal ligation Social History Smoking and tobacco status: former smoker Alcohol intake: never Female Reproductive History: Date of last menstrual period: 12/20/21 Physical Exam Const: GENERAL APPEARANCE: cooperative and comfortable ORIENTATION/CONSCIOUSNESS: Yes awake, Yes oriented to person, Yes oriented to place and Yes oriented to time HENMT: COMMON NORMALS: normocephalic, atraumatic and hearing grossly normal bilaterally HEAD & SCALP: normocephalic and atraumatic Resp: COMMON NORMALS: normal respiratory effort, No retractions, No use of accessory muscles and clear to auscultation bilaterally AUSCULTATION: clear to auscultation bilaterally Cardio: COMMON NORMALS: regular rate, regular rhythm and No murmurs present (C ardio) RATE: regular rate RHYTHM: regular rhythm GI: COMMON NORMALS: No hepatosplenomegaly present AUSCULTATION: Yes normoactive bowel sounds PALPATION: Yes Tenderness to palpation present (GI) Details: LUQ, No Guarding due to palpation present (GI) and Yes No hepatosplenomegaly present Extremity: COMMON NORMALS: normal to inspection, capillary refill normal, no clubbing, cyanosis or edema, no calf tenderness and no pedal edema Neuro: SENSORIUM/ORIENTATION: Yes oriented to person, Yes oriented to place and Yes oriented to time Skin: COMMON NORMALS: no rashes or lesions noted GENERAL SKIN EXAM: no rashes or lesions noted Course Vital Signs: Vital signs: Vital Signs Temperature 98.7 F 01/20/22 17:14 Pulse Rate 83 01/20/22 17:14 Respiratory Rate 18 01/20/22 17:14 Blood Pressure 182/108 01/20/22 17:14 Pulse Oximetry 95 01/20/22 17:14 Oxygen Delivery Me thod 01/20/22 16:27 MDM - Abdominal Pain Medical Decision Making Labs and imaging and EKG reviewed as found in the chart. Unchanged renal cysts mild hepatomegaly right ovarian cyst. Patient admits to been having been drinking recently. At this point I think we can discharge her home. CT did have an incidental finding of pneumonia I am concerned about possibility of aspiration. Was started on Augmentin also put her on albuterol and a PPI. Encourage abstinence from alcohol follow-up with her primary care doctor within a week return to the worse worsens. Medical Records I reviewed the patient's medical records. Lab Data I reviewed the patient's lab results. : 01/20/22 12:54 01/20/22 12:54 Labs/Radiology: Radiology Impressions Abdomen/Pelvis CT 01/20/22 14:32 IMPRESSION: 1. Mild hepatomegaly. 2. RIGHT ovarian cyst measuring 2.4 x 2.4 cm. 3. Increased attenuation renal cortical lesions LEFT greater than RIGHT likely hemorrhagic or proteinaceous cysts are unchanged. Largest LEFT upper pole measuring 1.9 cm. These can be followed up with ultrasound to confirm cystic contents on an elective basis. 4. Tiny esophageal hiatal hernia unchanged. 5. Small amount of groundglass infiltrate or atelectasis RIGHT lower lobe. Chest X-Ray 01/20/22 16:28 IMPRESSION: 1. No acute cardiopulmonary process. 2. Incidental/nonacute findings are listed in the report. Laboratory Results WBC 9.4 10^3/uL (4.0-10.0) 01/20/22 12:54 RBC 5.58 10^6/uL (4.1-5.3) H 01/20/22 12:54 Hgb 16.3 g/dL (11.5-15.3) H 01/20/22 12:54 Hct 49.6 % (37.0-47.0) H 01/20/22 12:54 MCV 88.9 fl (81-99) 01/20/22 12:54 MCH 29.2 pg (28.0-34.0) 01/20/22 12:54 MCHC 32.9 g/dL (30.0-36.0) 01/20/22 12:54 RDW 14.3 % (12.1-15.1) 01/20/22 12:54 Plt Count 260 10^3/cmm (130-400) 01/20/22 12:54 MPV 10.2 fL (7.4-10.4) 01/20/22 12:54 Neut % (Auto) 89.5 % 01/20/22 12:54 Lymph % (Auto) 6.1 % 01/20/22 12:54 Dale % (Auto) 3.0 % 01/20/22 12:54 Eos % (Auto) 0.8 % 01/20/22 12:54 Baso % (Auto) 0.3 % 01/20/22 12:54 Neut # (Auto) 8.43 10^3/uL (1.8-7.7) H 01/20/22 12:54 Lymph # (Auto) 0.6 10^3/uL (0.8-4.8) L 01/20/22 12:54 Dale # (Auto) 0.3 10^3/uL (0.2-0.9) 01/20/22 12:54 Eos # (Auto) 0.1 10^3/uL (0.0-0.8) 01/20/22 12:54 Baso # (Auto) 0.0 10^3/uL (0.0-0.1) 01/20/22 12:54 Nucleated RBC % (auto) 0 % 01/20/22 12:54 Nucleated RBCs # 0.0 /100WBC 01/20/22 12:54 Sodium 141 mmol/L (136-145) 01/20/22 12:54 Potassium 3.3 mmol/L (3.5-5.1) L 01/20/22 12:54 Chloride 101 mmol/L (98-107) 01/20/22 12:54 Carbon Dioxide 27 mmol/L (22-29) 01/20/22 12:54 Anion Gap 16.3 (5-19) 01/20/22 12:54 BUN 13 mg/dL (6-20) 01/20/22 12:54 Creatinine 0.6 mg/dL (0.5-0.9) 01/20/22 12:54 GFR Calculation 109.1 mL/min (90-130) 01/20/22 12:54 Glucose 109 mg/dL (65-115) 01/20/22 12:54 Calculated Osmolality 293 mOsm/kg (285-295) 01/20/22 12:54 Calcium 9.0 mg/dL (8.5-10.5) 01/20/22 12:54 Total Bilirubin 1.0 mg/dL (0.15-1.2) 01/20/22 12:54 AST 38 U/L (0-32) H 01/20/22 12:54 ALT 24 U/L (0-33) 01/20/22 12:54 Alkaline Phosphatase 95 IU/L (35-105) 01/20/22 12:54 Total Protein 7.3 g/dL (6.6-8.7) 01/20/22 12:54 Albumin 4.1 g/dL (3.5-5.2) 01/20/22 12:54 Globulin 3.2 g/dL (1.3-4.6) 01/20/22 12:54 Lipase 24 U/L (13-60) 01/20/22 12:54 HCG, Qual Negative (Negative) 01/20/22 12:54 Ethyl Alcohol < 10 mg/dL (0-10) 01/20/22 12:54 Discharge Plan Discharge Patient Disposition: Home Clinical Impression: Pneumonia, Alcoholic gastritis Condition: Stable Prescriptions: New amoxicillin-pot clavulanate 875-125 mg tablet 1 tab PO BID Qty: 14 0RF albuterol sulfate 90 mcg/actuation HFA aerosol inhaler 2 inh INHALATION Q4H PRN (Reason: shortness of breath or wheezing) Qty: 18 0RF pantoprazole 40 mg tablet,delayed release (DR/EC) 40 mg PO DAILY Qty: 30 0RF Discharge Orders: Discharge ED (Routine); Ordered 01/20/22 Ordered By: Myles Mejia Discharge Diet: Advance as tolerated Discharge Activity: Limit activity as instructed Patient Instructions: Opioid Safety Activity Restrictions/Additional Instructions: Abstain from alcohol. Use albuterol as needed for shortness of breath antibiotic twice daily for 7 days Coding Level of Care Code ED Supervisor Opening And Picking for Shani Fwd Exam Detailed
[2022-01-20 13:08] LABS: Basophils % 0.3 %; Eosinophils # 0.1 10^3/uL (0.0-0.8); Eosinophils % 0.8 %; Hematocrit 49.6 % (37.0-47.0); Hemoglobin 16.3 g/dL (11.5-15.3); Lymphocytes # 0.6 10^3/uL (0.8-4.8); Lymphocytes % 6.1 %; Mean Corpuscular HGB Conc 32.9 g/dL (30.0-36.0); Mean Corpuscular Hemoglobin 29.2 pg (28.0-34.0); Mean Corpuscular Volume 88.9 fl (81-99); Mean Platelet Volume 10.2 fL (7.4-10.4); Monocytes # 0.3 10^3/uL (0.2-0.9); Neutrophils # 8.43 10^3/uL (1.8-7.7); Neutrophils % 89.5 %; Nucleated Red Blood Cells % 0 %; Platelet Count 260 10^3/cmm (130-400); Red Blood Count 5.58 10^6/uL (4.1-5.3); Red Cell Distribution Width 14.3 % (12.1-15.1); White Blood Count 9.4 10^3/uL (4.0-10.0)
[2022-01-20 13:18] VITALS: BP 210/132; PULSE 83; RESP 18; O2SAT 95
[2022-01-20] MEDS: lidocaine 2% viscous 15 ML, aluminum-mag hydrox-simethicon 30 ML, sucralfate oral liq 1 GM PO (13:20)
[2022-01-20] MEDS: ondansetron 2 mg/ML SDV 2 mL 4 MG IVP (13:20)
[2022-01-20] MEDS: sodium chloride 0.9% 1,000 ML 999 ML IV (13:24)
[2022-01-20 13:25] LABS: HCG, Serum Qual Negative (Negative)
[2022-01-20 13:30] LABS: Alanine Aminotransferase 24 U/L (0-33); Albumin Level 4.1 g/dL (3.5-5.2); Alkaline Phosphatase 95 IU/L (35-105); Anion Gap 16.3 (5-19); Aspartate Amino Transferase 38 U/L (0-32); Blood Urea Nitrogen 13 mg/dL (6-20); Carbon Dioxide 27 mmol/L (22-29); Chloride 101 mmol/L (98-107); Globulin 3.2 g/dL (1.3-4.6); Glomerular Filtration Rate 109.1 mL/min (90-130); Glucose 109 mg/dL (65-115); Lipase 24 U/L (13-60); Osmolality Calculated 293 mOsm/kg (285-295); Potassium 3.3 mmol/L (3.5-5.1); Sodium 141 mmol/L (136-145); Total Protein 7.3 g/dL (6.6-8.7)
[2022-01-20 13:38] LABS: Alcohol Level < 10 mg/dL (0-10)
[2022-01-20 14:31] VITALS: RESP 20
[2022-01-20] MEDS: morphine 4 mg/mL SDV 1 mL IVP (14:31)
--- NOTE | 2022-01-20 14:32 | CT_ITS ---
WS: [id number] CT ABDOMEN PELVIS TECHNIQUE: Noncontrast CT of the abdomen and pelvis with coronal and sagittal reformatted images. CLINICAL INFORMATION: Abdominal pain COMPARISON: August 31, 2021 DLP: 702.[address] scans at [facility] use at least one of these dose optimization techniques: automated e xposure control; mA and/or kV adjustment per patient size (includes targeted exams where dose is matc hed to clinical indication); or iterative reconstruction. FINDINGS: Slight RIGHT basilar groundglass infiltrate or atelectasis. Lung bases otherwise well aerated. Hepato megaly. Noncontrast liver otherwise appears unremarkable. Normal noncontrast gallbladder and spleen. Tiny esophageal hiatal hernia unchanged. Air-fluid level in the stomach. Noncontrast pancreas appears normal. Adrenal glands are normal. No hydronephrosis in either kidney. Increased attenuation bilater al renal cortical lesions likely hemorrhagic or proteinaceous cysts unchanged from August 31, 2021. La rgest upper pole LEFT kidney measuring 19 mm. This can be followed up with ultrasound. No obstructing renal or ureteral calculi. Normal caliber abdominal aorta. Tiny fat-containing umbilical hernia. Sigmoid diverticulosis. No evid ence of acute diverticulitis. No high-grade small or large bowel obstruction. No free fluid in the ab domen or pelvis.RIGHT ovarian cyst measuring 2.4 x 2.4 cm. Normal appendix in the RIGHT lower quadran t. CT/CT abdomen pelvis wo con [id number] IMPRESSION: 1. Mild hepatomegaly. 2. RIGHT ovarian cyst measuring 2.4 x 2.4 cm. 3. Increased attenuation renal cortical lesions LEFT greater than RIGHT likely hemorrhagic or proteinaceous cysts are unchanged. Largest LEFT upper pole ralhp uring 1.9 cm. These can be followed up with ultrasound to confirm cystic conten ts on an elective basis. 4. Tiny esophageal hiatal hernia unchanged. 5. Small amount of groundglass infiltrate or atelectasis RIGHT lower lobe.
[2022-01-20 14:33] VITALS: BP 131/125; PULSE 94; RESP 20; O2SAT 97
[2022-01-20] MEDS: hyDRALAzine 20 mg/mL INJ 1 mL IVP (16:10)
[2022-01-20 16:27] VITALS: BP 145/91; O2SAT 100
--- NOTE | 2022-01-20 16:28 | XRR_ITS ---
PROCEDURE INFORMATION: Exam: XR Chest Exam date and time: 01/20/2022 4:37 PM Age: 41 years old Clinical indication: Dyspnea and other: Upper abd pain; Patient HX: Pain began last night. She did drink fairly large amount of hard liquor last night. Patient reports she previously been a very heavy drinker she has had episodes of pancreatitis in the past. ; Additional info: Dyspnea/cough TECHNIQUE: Imaging protocol: Radiologic exam of the chest. Views: 1 view. COMPARISON: CT abdomen pelvis wo con [id number] 01/20/2022 3:24 PM FINDINGS: Lungs: Lungs are clear bilaterally. Pleural spaces: No pleural effusion. No pneumothorax. Heart/Mediastinum: The cardiac silhouette and mediastinal contours are unremarkable. Bones/joints: Unremarkable for age. XR/XR chest 1V portable [id number] IMPRESSION: 1. No acute cardiopulmonary process. 2. Incidental/nonacute findings are listed in the report.
[2022-01-20 17:14] VITALS: BP 182/108; PULSE 83; RESP 18; TEMP 37.1; O2SAT 95
== END 2022-01-20 17:15 | disposition home or self-care (01) ==
PROVIDERS: Physician Assistant; Emergency Provider Family Medicine
DX: K29.20 Alcoholic gastritis without bleeding (principal); J18.9 Pneumonia, unspecified organism; I10 Essential (primary) hypertension; Z87.891 Personal history of nicotine dependence
CPT/HCPCS: 71045; 74176; 80053; 80307; 83690; 84703; 85025; 93005; 96361; 96374; 96375; 99285; J0360; J2270; J2405; J7030

== ENCOUNTER 2022-04-03 13:16 | Emergency (ER) | payer MEDICAID, SELFPAY ==
[2022-04-03 13:35] VITALS: BP 186/118; PULSE 111; RESP 18; TEMP 36.7; O2SAT 96; BMI 30.2
[2022-04-03 14:40] LABS: Add Urine Microscopic? YES; Bilirubin Urine Neg (Negative); Blood Urine 3+ (Negative); Glucose Urine UA Norm (Normal); Ketones Urine Negative (Negative); Leukocyte Esterase Urine Negative (Negative); Nitrate Urine Negative (Negative); Protein Urine 1+ (Negative); Specific Gravity, Urine 1.025 (1.005-1.030); Urine Appearance Clear (CLEAR); Urine Color Yellow (Yellow); Urobilinogen Urine Norm (Negative); pH Urine 6 (5-7)
[2022-04-03 14:41] LABS: Basophils # 0.1 10^3/uL (0.0-0.1); Basophils % 0.7 %; Eosinophils # 0.4 10^3/uL (0.0-0.8); Eosinophils % 4.2 %; Hematocrit 43.5 % (37.0-47.0); Hemoglobin 14.7 g/dL (11.5-15.3); Lymphocytes # 2.7 10^3/uL (0.8-4.8); Lymphocytes % 27.2 %; Mean Corpuscular HGB Conc 33.8 g/dL (30.0-36.0); Mean Corpuscular Hemoglobin 28.9 pg (28.0-34.0); Mean Corpuscular Volume 85.5 fl (81-99); Mean Platelet Volume 9.9 fL (7.4-10.4); Monocytes # 0.6 10^3/uL (0.2-0.9); Monocytes % 5.6 %; Neutrophils # 6.02 10^3/uL (1.8-7.7); Neutrophils % 61.8 %; Nucleated Red Blood Cells % 0 %; Platelet Count 311 10^3/cmm (130-400); Red Blood Count 5.09 10^6/uL (4.1-5.3); Red Cell Distribution Width 14.5 % (12.1-15.1); White Blood Count 9.8 10^3/uL (4.0-10.0)
[2022-04-03 14:46] LABS: Add Urine Culture? No
[2022-04-03 15:00] LABS: Alanine Aminotransferase 16 U/L (0-33); Albumin Level 4.1 g/dL (3.5-5.2); Alkaline Phosphatase 99 U/L (35-105); Anion Gap 18.3 (5-19); Aspartate Amino Transferase 21 U/L (0-32); Blood Urea Nitrogen 14 mg/dL (6-20); Calcium 9.5 mg/dL (8.5-10.5); Carbon Dioxide 25 mmol/L (22-29); Chloride 98 mmol/L (98-107); Creatinine Clr Calc Pharmacy 110.1433; Globulin 3.5 g/dL (1.3-4.6); Glomerular Filtration Rate 109.1 mL/min (90-130); Glucose 78 mg/dL (65-115); Osmolality Calculated 285 mOsm/kg (285-295); Potassium 3.3 mmol/L (3.5-5.1); Sodium 138 mmol/L (136-145); Total Bilirubin 0.4 mg/dL (0.15-1.2); Total Protein 7.6 g/dL (6.6-8.7)
[2022-04-03 18:03] VITALS: BP 189/131; PULSE 98; RESP 16; TEMP 36.9; O2SAT 96
--- NOTE | 2022-04-03 18:13 | ED_ITS ---
HPI - General Adult General: Chief complaint: General Medical Stated complaint: High BP Time Seen by Provider: 04/03/22 18:00 History of Present Illness: Patient is a 41-year-old female who comes to the ED with high blood pressure. She states she has been off of her blood pressure medication now for the past 2 months because she has been able to see a doctor. She was taking 20 mg of lisinopril twice a day. Denies any other symptoms such as chest pain, shortness of breath or any neuro symptoms. She also is complaining of having a pruritic rash that started on her hands and its small sores that have continued to spread all throughout her arms and torso. Pruritic sores started approximately 2 weeks ago. She is unsure of what caused them. Associated symptoms: Reports rash; Deny chest pain, dyspnea, headache(s), nausea, palpitations or vomiting Review of Systems Narrative: Elevated blood pressures Const: Denies: fever(s), chills or fatigue Eyes: Denies: change in vision or eye discomfort ENMT: Denies: throat pain, odynophagia, nasal discharge or nasal congestion Card: Denies: chest pain, palpitations, edema, swelling of feet/ankles, dyspnea on exertion or orthopnea Resp: Denies: dyspnea, productive cough or non-productive cough GI: Denies: abdominal pain, nausea, vomiting, diarrhea, constipation or hematochezia : Denies: flank pain, dysuria or hematuria Musc: Denies: neck pain, back pain or extremity swelling Skin/Breast: Reports: rash; Denies: new lesions Neuro: Denies: headache(s), numbness in extremities or weakness in extremities [facility] ED PFSH: Medical History Anxiety History of alcohol abuse Hypertension Surgical History History of tubal ligation Social History Smoking and tobacco status: former smoker Alcohol intake: never Female Reproductive History: Date of last menstrual period: 12/20/21 Physical Exam Const: COMMON NORMALS: no acute distress, patient oriented x3 and alert GENERAL APPEARANCE: cooperative HENMT: COMMON NORMALS: normocephalic HEAD & SCALP: normocephalic MOUTH: Normal oral and palatal mucosa present THROAT: posterior oropharynx normal and uvula midline Neck/C-Spine: COMMON NORMALS: supple GENERAL: Yes normal visual inspection Resp: COMMON NORMALS: normal respiratory effort, No retractions, No use of accessory muscles and clear to auscultation bilaterally AUSCULTATION: clear to auscultation bilaterally Cardio: COMMON NORMALS: regular rate, regular rhythm, S1 normal heart sound present, S2 normal heart sound present, No gallops present (Cardio), No clicks present (Cardio), No murmurs present (Cardio) and Peripheral pulses 2+ throughout RATE: regular rate RHYTHM: regular rhythm HEART SOUNDS: S1 normal heart sound present and S2 normal heart sound present PERIPHERAL PULSES: Peripheral pulses 2+ throughout GI: COMMON NORMALS: Normal to inspection, nondistended, normoactive bowel sounds present, Soft to palpation, non-tender and no masses PALPATION: Yes Soft to palpation : COMMON NORMALS: Yes no CVA tenderness BLADDER/KIDNEY EXAM: Yes no CVA tenderness Back/Pelvis: COMMON NORMALS: no CVA tenderness Extremity: GENERAL: Yes normal exam except as noted Neuro: COMMON NORMALS: patient oriented x3 SENSORIUM/ORIENTATION: Yes alert GAIT: Yes Normal gait present Skin: NARRATIVE SKIN EXAM: Patient has many circular pruritic sores throughout her torso and arms bilaterally. Some sores have some erythema and warmth surrounding them suggestive of possible developing cellulitis. GENERAL SKIN EXAM: dry skin Course 2 Vital Signs: Vital signs: Vital Signs Temperature 98.4 F 04/03/22 18:03 Pulse Rate 98 04/03/22 18:03 Respiratory Rate 16 04/03/22 18:03 Blood Pressure 159/97 04/03/22 21:25 Pulse Oximetry 96 04/03/22 18:03 Oxygen Delivery Me thod 04/03/22 18:03 [facility] - General Adult Medical Decision Making Patient is a 41-year-old female who comes to the ED with high blood pressure. She states she has been off of her blood pressure medication now for the past 2 months because she has been able to see a doctor. She was taking 20 mg of lisinopril twice a day. Denies any other symptoms such as chest pain, shortness of breath or any neuro symptoms. She also is complaining of having a pruritic rash that started on her hands and its small sores that have continued to spread all throughout her arms and torso. Pruritic sores started approximately 2 weeks ago. She is unsure of what caused them. Blood pressure was 186/118 upon arrival here in the ED. Rest of her vitals are stable. Patient has many circular pruritic sores throughout her torso and arms bilaterally. Some sores have some erythema and warmth surrounding them suggestive of possible developing cellulitis. Rest of her exam is benign. Patient's potassium is 3.3 and she was given a dose of p.o. potassium here in the ED. Rest of her CBC and CMP were unremarkable. Patient was given a dose of clonidine and hydralazine to lower blood pressure 159/97. She was also given a dose of Solu-Medrol and clindamycin to treat rash. Patient was diagnosed with asymptomatic hypertensive urgency and rash and was discharged home with prescription for lisinopril for blood pressure, prednisone, steroid cream and antibiotic. Told to follow-up with her PCP within a week for reevaluation. Return to ED precautions given. Patient understood and agreed with plan. Lab Data I reviewed the patient's lab results. : 04/03/22 14:32 04/03/22 14:32 Laboratory Results WBC 9.8 10^3/uL (4.0-10.0) 04/03/22: RBC 5.09 10^6/uL (4.1-5.3) 04/03/22 14: Hgb 14.7 g/dL (11.5-15.3) 04/03/22 14: Hct 43.5 % (37.0-47.0) 04/03/22 14: MCV 85.5 fl (81-99) 04/03/22 14: MCH 28.9 pg (28.0-34.0) 04/03/22 14: MCHC 33.8 g/dL (30.0-36.0) 04/03/22 14: RDW 14.5 % (12.1-15.1) 04/03/22 14: Plt Count 311 10^3/cmm (130-400) 04/03/22 14: MPV 9.9 fL (7.4-10.4) 04/03/22 14: Neut % (Auto) 61.8 % 04/03/22 14:32 Lymph % (Auto) 27.2 % 04/03/22 14:32 [place] % (Auto) 5.6 % 04/03/22 14:32 Eos % (Auto) 4.2 % 04/03/22 14:32 Baso % (Auto) 0.7 % 04/03/22 14:32 Neut # (Auto) 6.02 10^3/uL (1.8-7.7) 04/03/22 14:32 Lymph # (Auto) 2.7 10^3/uL (0.8-4.8) 04/03/22 14:32 [place] # (Auto) 0.6 10^3/uL (0.2-0.9) 04/03/22 14:32 Eos # (Auto) 0.4 10^3/uL (0.0-0.8) 04/03/22 14:32 Baso # (Auto) 0.1 10^3/uL (0.0-0.1) 04/03/22 14:32 Nucleated RBC % (auto) 0 % 04/03/22 14:32 Nucleated RBCs # 0.0 /100WBC 04/03/22 14:32 Sodium 138 mmol/L (136-145) 04/03/22 14:32 Potassium 3.3 mmol/L (3.5-5.1) L 04/03/22 14:32 Chloride 98 mmol/L (98-107) 04/03/22 14:32 Carbon Dioxide 25 mmol/L (22-29) 04/03/22 14:32 Anion Gap 18.3 (5-19) 04/03/22 14:32 BUN 14 mg/dL (6-20) 04/03/22 14:32 Creatinine 0.6 mg/dL (0.5-0.9) 04/03/22 14:32 GFR Calculation 109.1 mL/min (90-130) 04/03/22 14:32 Glucose 78 mg/dL (65-115) 04/03/22 14:32 Calculated Osmolality 285 mOsm/kg (285-295) 04/03/22 14:32 Calcium 9.5 mg/dL (8.5-10.5) 04/03/22 14:32 Total Bilirubin 0.4 mg/dL (0.15-1.2) 04/03/22 14:32 AST 21 U/L (0-32) 04/03/22 14:32 ALT 16 U/L (0-33) 04/03/22 14:32 Alkaline Phosphatase 99 U/L (35-105) 04/03/22 14:32 Total Protein 7.6 g/dL (6.6-8.7) 04/03/22 14:32 Albumin 4.1 g/dL (3.5-5.2) 04/03/22 14:32 Globulin 3.5 g/dL (1.3-4.6) 04/03/22 14:32 Urine Color Yellow (Yellow) 04/03/22 14:35 Urine Appearance Clear (CLEAR) 04/03/22 14:35 Urine pH 6 (5-7) 04/03/22 14:35 Ur Specific [place] 1.025 (1.005-1.030) 04/03/22 14:35 Urine Protein 1+ (Negative) H 04/03/22 14:35 Urine Glucose (UA) Norm (Normal) 04/03/22 14:35 Urine Ketones Negative (Negative) 04/03/22 14:35 Urine Blood 3+ (Negative) H 04/03/22 14:35 Urine Nitrate Negative (Negative) 04/03/22 14:35 Urine Bilirubin Neg (Negative) 04/03/22 14:35 Urine Urobilinogen Norm mg/dL (Negative) 04/03/22 14:35 Ur Leukocyte Esterase Negative (Negative) 04/03/22 14:35 Urine RBC 5-10 /hpf (0-2) H 04/03/22 14:35 Urine WBC 5-10 /hpf (0-5) H 04/03/22 14:35 Ur Squamous Epith Cells 5-10 /hpf (0-5) H 04/03/22 14:35 Amorphous Sediment Not Reportable 04/03/22 14:35 Urine Bacteria None /hpf (NONE) 04/03/22 14:35 Discharge Plan Discharge Patient Disposition: Home Clinical Impression: Asymptomatic hypertensive urgency, Rash Condition: Stable Prescriptions: New clindamycin HCl 150 mg capsule 300 mg PO QID 7 Days Qty: 56 0RF prednisone 20 mg tablet 20 mg PO BID 5 Days Qty: 10 0RF triamcinolone acetonide 0.1 % cream 1 applic topical BID PRN (Reason: rash) Qty: 80 0RF lisinopril 20 mg tablet 20 mg PO BID Qty: 60 0RF No Action amoxicillin-pot clavulanate 875-125 mg tablet 1 tab PO BID Qty: 14 0RF albuterol sulfate 90 mcg/actuation HFA aerosol inhaler 2 inh INHALATION Q4H PRN (Reason: shortness of breath or wheezing) Qty: 18 0RF pantoprazole 40 mg tablet,delayed release (DR/EC) 40 mg PO DAILY Qty: 30 0RF Discharge Orders: Discharge ED (Routine); Ordered 04/03/22 Ordered By: Jeancarlos Thomas Discharge Diet: Regular Discharge Activity: Increase activity as tolerated Activity Restrictions/Additional Instructions: Follow-up with medical provider as directed in the next 5 to 7 days for reevaluation. Continue to checking your blood pressures daily and logging them so you can show primary care physician at your next visit. take medications as prescribed. Return to the ER or your medical provider if condition worsens. Please read and understand discharge instructions. Thank you for choosing [facility] for your healthcare needs today. Please realize this is an emergency room and that we are providing you with a medical screening exam and this may not be complete and all inclusive of all the testing and or work up that you may need to determine your ailment or severity of your illness. It is very important that you follow up as instructed or that you return to the Emergency Department should you have concerns or if your condition changes or worsens in any way. 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
[2022-04-03 18:26] VITALS: BP 189/131
[2022-04-03] MEDS: cloNIDine 0.1 mg Tablet PO ×2 (18:26→19:30)
[2022-04-03 19:18] VITALS: BP 200/131
[2022-04-03] MEDS: LORazepam 0.5 mg Tablet PO (19:30)
[2022-04-03] MEDS: clindamycin 150 mg Capsule 300 MG PO (19:30)
[2022-04-03 20:15] VITALS: BP 175/126
[2022-04-03] MEDS: hyDRALAzine 25 mg Tablet PO (20:30)
[2022-04-03 21:25] VITALS: BP 159/97
[2022-04-03] MEDS: potassium chloride ER 20 mEq Tablet PO (21:37)
== END 2022-04-03 21:38 | disposition home or self-care (01) ==
PROVIDERS: Emergency Medicine; Emergency Provider Physician Assistant
DX: I16.0 Hypertensive urgency (principal); R21 Rash and other nonspecific skin eruption; I10 Essential (primary) hypertension; Z87.891 Personal history of nicotine dependence
CPT/HCPCS: 80053; 81001; 85025; 96372; 99284; J2930

== ENCOUNTER 2022-04-04 19:15 | Emergency (ER) | payer MEDICAID, SELFPAY ==
[2022-04-04 18:54] VITALS: BP 148/84; PULSE 105; RESP 18; TEMP 36.8; O2SAT 96; BMI 28.3
--- NOTE | 2022-04-04 18:56 | CTR_ITS ---
PROCEDURE INFORMATION: Exam: CT Abdomen And Pelvis Without Contrast Exam date and time: 04/04/2022 7:19 PM Age: 41 years old Clinical indication: Abdominal pain; Flank; Right; Prior surgery; Surgery type: Tubal ligation; Additional info: Flank pain TECHNIQUE: Imaging protocol: Computed tomography of the abdomen and pelvis without contrast. Radiation optimization: All CT scans at this facility use at least one of these dose optimization techniques: automated exposure control; mA and/or kV adjustment per patient size (includes targeted exams where dose is matched to clinical indication); or iterative reconstruction. COMPARISON: CT abdomen pelvis wo con [id number] 01/20/2022 3:24 PM RADIATION DOSE METRICS: Total DLP (mGy-cm): 694.84 FINDINGS: Liver: Normal. No mass. Gallbladder and bile ducts: Normal. No calcified stones. No ductal dilation. Pancreas: Normal. No ductal dilation. Spleen: Normal. No splenomegaly. Adrenal glands: Normal. No mass. Kidneys and ureters: Several bilateral renal cysts, similar to prior exam, several of which are hyperdense, negative for follow-up advised. Stomach and bowel: Constipation. Appendix: No evidence of appendicitis. Intraperitoneal space: Unremarkable. No free air. No significant fluid collection. Vasculature: Unremarkable. No abdominal aortic aneurysm. Lymph nodes: Unremarkable. No enlarged lymph nodes. Urinary bladder: Unremarkable as visualized. Reproductive: Unremarkable as visualized. Bones/joints: Unremarkable. No acute fracture. Soft tissues: Unremarkable. CT/CT kidney stone [id number] IMPRESSION: 1. Negative for acute inflammatory process in the abdomen or pelvis. 2. Several bilateral renal cysts, similar to prior exam, several of which are hyperdense, negative for follow-up advised. 3. Constipation.
--- NOTE | 2022-04-04 18:56 | W.ED.ABDPA2 ---
HPI - Abdominal Pain General: Chief Complaint: General Medical Stated Complaint: kidney pain Source: patient and EMS Mode of arrival: EMS Limitations: no limitations History of Present Illness: 41-year-old female who states she has been having flank and abdominal pain since yesterday she was seen here yesterday for same diagnosed with a possible UTI states been take antibiotics she actually has multiple complaints she states that she had headache chest pain abdominal pain flank pain and burning with urination. Patient is actually laughing and joking in the room while is in there. She denies any vomiting or diarrhea or fevers. Associated Symptoms: Denies chills, diarrhea, fever(s), nausea and vomiting Related Data: Date of Last Menstrual Period: 12/20/21 Review of Systems Const: Denies: fever(s), chills, body aches or change in appetite Eyes: Denies: blurry vision or eye discomfort ENMT: Denies: throat pain or dental pain Card: Denies: chest pain Resp: Denies: dyspnea GI: Denies: abdominal pain, nausea, vomiting or diarrhea : Reports: flank pain Musc: Denies: neck pain or back pain Skin/Breast: Denies: rash Neuro: Denies: headache(s) Psych: Denies: depression [place]/Lymph: Denies: easy bruising All/Imm: Denies: urticaria PFSH ED PFSH: Medical History Anxiety History of alcohol abuse Hypertension Surgical History History of tubal ligation Social History Smoking and tobacco status: former smoker Alcohol intake: never Female Reproductive History: Date of last menstrual period: 12/20/21 Physical Exam Const: COMMON NORMALS: no acute distress, patient oriented x3 and healthy appearing HENMT: COMMON NORMALS: normocephalic and atraumatic HEAD & SCALP: normocephalic and atraumatic Eye: COMMON NORMALS: Equal, round and reactive pupils present and EOMs intact bilaterally PUPIL: Yes Equal, round and reactive pupils present Neck/C-Spine: COMMON NORMALS: full ROM and supple Chest: COMMONS NORMALS: normal inspection of the chest and normal palpation of entire chest wall Resp: COMMON NORMALS: normal respiratory effort, No retractions, No use of accessory muscles and clear to auscultation bilaterally AUSCULTATION: clear to auscultation bilaterally Cardio: COMMON NORMALS: regular rate, regular rhythm and No murmurs present (Cardio) RATE: regular rate RHYTHM: regular rhythm GI: COMMON NORMALS: Normal to inspection, nondistended, normoactive bowel sounds present, Soft to palpation, non-tender and no masses PALPATION: Yes Soft to palpation Extremity: COMMON NORMALS: normal to inspection and full ROM Neuro: COMMON NORMALS: patient oriented x3, moves all extremities and no focal motor deficits Psych: COMMON NORMALS: mental status grossly normal, Normal thought process present and cooperative THOUGHT PROCESS: Normal thought process present Skin: COMMON NORMALS: no rashes or lesions noted and no wounds GENERAL SKIN EXAM: no rashes or lesions noted Course Vital Signs: Vital signs: Vital Signs Temperature 98.3 F 04/04/22 19:30 Pulse Rate 100 04/04/22 19:30 Respiratory Rate 18 04/04/22 19:30 Blood Pressure 142/84 04/04/22 19:30 Pulse Oximetry 96 04/04/22 19:30 Oxygen Delivery Me thod 04/04/22 19:30 MDM - Abdominal Pain Medical Decision Making Patient presents here with abdominal flank pain CT shows constipation blood work is otherwise normal we will start her on MiraLAX she is stable for discharge she is to follow-up with PCP and return if worsening. Lab Data : 04/04/22 19:09 04/04/22 19:09 Labs/Radiology: Radiology Impressions Abdomen/Pelvis CT 04/04/22 18:56 IMPRESSION: 1. Negative for acute inflammatory process in the abdomen or pelvis. 2. Several bilateral renal cysts, similar to prior exam, several of which are hyperdense, negative for follow-up advised. 3. Constipation. Laboratory Results WBC 10.0 10^3/uL (4.0-10.0) 04/04/22 19:09 RBC 4.63 10^6/uL (4.1-5.3) 04/04/22 19:09 Hgb 13.6 g/dL (11.5-15.3) 04/04/22 19:09 Hct 40.4 % (37.0-47.0) 04/04/22 19:09 MCV 87.3 fl (81-99) 04/04/22 19:09 MCH 29.4 pg (28.0-34.0) 04/04/22 19:09 MCHC 33.7 g/dL (30.0-36.0) 04/04/22 19:09 RDW 14.8 % (12.1-15.1) 04/04/22 19:09 Plt Count 323 10^3/cmm (130-400) 04/04/22 19:09 MPV 10.2 fL (7.4-10.4) 04/04/22 19:09 Neut % (Auto) 81.3 % 04/04/22 19:09 Lymph % (Auto) 15.3 % 04/04/22 19:09 [place] % (Auto) 2.7 % 04/04/22 19:09 Eos % (Auto) 0.1 % 04/04/22 19:09 Baso % (Auto) 0.1 % 04/04/22 19:09 Neut # (Auto) 8.12 10^3/uL (1.8-7.7) H 04/04/22 19:09 Lymph # (Auto) 1.5 10^3/uL (0.8-4.8) 04/04/22 19:09 [place] # (Auto) 0.3 10^3/uL (0.2-0.9) 04/04/22 19:09 Eos # (Auto) 0.0 10^3/uL (0.0-0.8) 04/04/22 19:09 Baso # (Auto) 0.0 10^3/uL (0.0-0.1) 04/04/22 19:09 Nucleated RBC % (auto) 0 % 04/04/22 19:09 Nucleated RBCs # 0.0 /100WBC 04/04/22 19:09 Sodium 131 mmol/L (136-145) L 04/04/22 19:09 Potassium 3.1 mmol/L (3.5-5.1) L 04/04/22 19:09 Chloride 96 mmol/L (98-107) L 04/04/22 19:09 Carbon Dioxide 21 mmol/L (22-29) L 04/04/22 19:09 Anion Gap 17.1 (5-19) 04/04/22 19:09 BUN 31 mg/dL (6-20) H 04/04/22 19:09 Creatinine 0.8 mg/dL (0.5-0.9) 04/04/22 19:09 GFR Calculation 78.3 mL/min (90-130) L 04/04/22 19:09 Glucose 234 mg/dL (65-115) H 04/04/22 19:09 Calculated Osmolality 286 mOsm/kg (285-295) 04/04/22 19:09 Calcium 9.2 mg/dL (8.5-10.5) 04/04/22 19:09 Total Bilirubin 0.3 mg/dL (0.15-1.2) 04/04/22 19:09 AST 13 U/L (0-32) 04/04/22 19:09 ALT 15 U/L (0-33) 04/04/22 19:09 Alkaline Phosphatase 113 U/L (35-105) H 04/04/22 19:09 Total Protein 6.9 g/dL (6.6-8.7) 04/04/22 19:09 Albumin 4.0 g/dL (3.5-5.2) 04/04/22 19:09 Globulin 2.9 g/dL (1.3-4.6) 04/04/22 19:09 Lipase 43 U/L (13-60) 04/04/22 19:09 Discharge Plan Discharge Patient Disposition: Home Clinical Impression: Acute flank pain, Constipation Condition: Stable Prescriptions: New Miralax 17 gram powder in packet 17 g PO DAILY PRN (Reason: constipation) 4 Days Qty: 14 0RF No Action amoxicillin-pot clavulanate 875-125 mg tablet 1 tab PO BID Qty: 14 0RF albuterol sulfate 90 mcg/actuation HFA aerosol inhaler 2 inh INHALATION Q4H PRN (Reason: shortness of breath or wheezing) Qty: 18 0RF pantoprazole 40 mg tablet,delayed release (DR/EC) 40 mg PO DAILY Qty: 30 0RF clindamycin HCl 150 mg capsule 300 mg PO QID 7 Days Qty: 56 0RF prednisone 20 mg tablet 20 mg PO BID 5 Days Qty: 10 0RF triamcinolone acetonide 0.1 % cream 1 applic topical BID PRN (Reason: rash) Qty: 80 0RF lisinopril 20 mg tablet 20 mg PO BID Qty: 60 0RF Discharge Orders: Discharge ED (Routine); Ordered 04/04/22 Ordered By: Jim Murphy Discharge Diet: Advance as tolerated Discharge Activity: Resume usual activity Patient Instructions: Constipation (ED) Coding Level of Care Code 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
[2022-04-04 19:00] VITALS: RESP 18
[2022-04-04] MEDS: HYDROmorphone 1 mg/mL INJ 1 mL 0.5 MG IVP (19:00)
--- NOTE | 2022-04-04 19:00 | ECG_ITS ---
[facility] Test Date: 2022-04-04 Pat Name: Keyonna Lucero Department: Room: Gender: Female Wireless Architect: : 1980 Requested By: Jim Murphy Order Number: [id number] Mike MD: Vahid Hackett M.D. Measurements Intervals [place] Rate: 100 P: 55 CA: 138 QRS: 25 QRSD: 98 T: 131 QT: 342 QTc: 441 Interpretive Statements SINUS TACHYCARDIA POSSIBLE LEFT ATRIAL ENLARGEMENT [-0.1mV P-WAVE IN V1/V2] INCOMPLETE RIGHT BUNDLE BRANCH BLOCK [90+ ms QRS DURATION, TERMINAL R IN V1/V2, 40+ ms S IN I/aVL/V4/V5/V6] NONSPECIFIC T-WAVE ABNORMALITY Compared to ECG 01/20/2022 13:08:12 Incomplete right bundle-branch block now present Sinus rhythm no longer present T-wave abnormality still present Electronically Signed On 04-05-2022 21:59:56 CDT by Vahid Hackett M.D. [id number]
[2022-04-04 19:17] LABS: Basophils % 0.1 %; Eosinophils % 0.1 %; Hematocrit 40.4 % (37.0-47.0); Hemoglobin 13.6 g/dL (11.5-15.3); Lymphocytes # 1.5 10^3/uL (0.8-4.8); Lymphocytes % 15.3 %; Mean Corpuscular HGB Conc 33.7 g/dL (30.0-36.0); Mean Corpuscular Hemoglobin 29.4 pg (28.0-34.0); Mean Corpuscular Volume 87.3 fl (81-99); Mean Platelet Volume 10.2 fL (7.4-10.4); Monocytes # 0.3 10^3/uL (0.2-0.9); Monocytes % 2.7 %; Neutrophils # 8.12 10^3/uL (1.8-7.7); Neutrophils % 81.3 %; Nucleated Red Blood Cells % 0 %; Platelet Count 323 10^3/cmm (130-400); Red Blood Count 4.63 10^6/uL (4.1-5.3); Red Cell Distribution Width 14.8 % (12.1-15.1)
[2022-04-04] MEDS: ondansetron 2 mg/ML SDV 2 mL 4 MG IVP (19:19)
[2022-04-04] MEDS: lactated ringers 1,000 ML 999 ML IV (19:19)
[2022-04-04 19:30] VITALS: BP 142/84; PULSE 100; RESP 18; TEMP 36.8; O2SAT 96
[2022-04-04 19:49] LABS: Alanine Aminotransferase 15 U/L (0-33); Alkaline Phosphatase 113 U/L (35-105); Anion Gap 17.1 (5-19); Aspartate Amino Transferase 13 U/L (0-32); Blood Urea Nitrogen 31 mg/dL (6-20); Calcium 9.2 mg/dL (8.5-10.5); Carbon Dioxide 21 mmol/L (22-29); Chloride 96 mmol/L (98-107); Globulin 2.9 g/dL (1.3-4.6); Glomerular Filtration Rate 78.3 mL/min (90-130); Glucose 234 mg/dL (65-115); Lipase 43 U/L (13-60); Osmolality Calculated 286 mOsm/kg (285-295); Potassium 3.1 mmol/L (3.5-5.1); Sodium 131 mmol/L (136-145); Total Bilirubin 0.3 mg/dL (0.15-1.2); Total Protein 6.9 g/dL (6.6-8.7)
[2022-04-04 21:17] VITALS: BP 138/70; PULSE 100; RESP 18; TEMP 36.8; O2SAT 96
== END 2022-04-04 21:22 | disposition home or self-care (01) ==
PROVIDERS: Emergency Provider Emergency Medicine
DX: K59.00 Constipation, unspecified (principal); Z87.891 Personal history of nicotine dependence; I10 Essential (primary) hypertension
CPT/HCPCS: 36415; 74176; 80053; 83690; 85025; 93005; 96361; 96374; 96375; 99285; J1170; J2405

== ENCOUNTER 2022-05-29 10:00 | Emergency (ER) | payer MEDICAID, SELFPAY ==
[2022-05-29 10:03] VITALS: BP 198/114; PULSE 118; RESP 16; TEMP 36.8; O2SAT 95; BMI 30.9
--- NOTE | 2022-05-29 10:32 | ED_ITS ---
Documented by User: Destinee Wheeler PA-C 05/29/22 13:24 HPI - Abdominal Pain General: Chief Complaint: Abdominal Pain Stated Complaint: HBP Time Seen by Provider: 05/29/22 10:31 Source: patient Mode of arrival: ambulatory Limitations: no limitations History of Present Illness: 41-year-old female with a history of hypertension presents to the ER today for elevated blood pressures and also a cough for the last 2 to 3 weeks. Patient reports she got sick over gi and the cough has just continued. She reports she gets into coughing fits and loses her breath. Patient is not taking anything [id number] for this at this time. She reports she ran out of blood pressure medicines about 3 days ago and did not go back to her doctor to get a refill. Patient reports when on the medication she typically runs okay on her blood pressure. Patient denies any fever or chills. Patient denies any abdominal pain to me. She reports she has soreness from coughing but no nausea, no vomiting, no diarrhea, no constipation. Related Data: Date of Last Menstrual Period: 12/20/21 Review of Systems General: Reports: 10 or more systems reviewed and unremarkable except in HPI and below PFSH ED PFSH: Medical History Anxiety History of alcohol abuse Hypertension Surgical History History of tubal ligation Social History Smoking and tobacco status: former smoker Alcohol intake: never Female Reproductive History: Date of last menstrual period: 12/20/21 Physical Exam Const: COMMON NORMALS: average body habitus, no limitations, alert and well nourished OTHER: Patient is disheveled and has a very foul smell today HENMT: COMMON NORMALS: Normal external nose present and Normal nasal mucous membranes and turbinates present NOSE: Normal external nose present and Normal nasal mucous membranes and turbinates present THROAT: posterior oropharynx normal Eye: COMMON NORMALS: conjunctivae normal CONJUNCTIVA: Yes conjunctivae normal Resp: COMMON NORMALS: normal respiratory effort, No retractions and clear to auscultation bilaterally AUSCULTATION: clear to auscultation bilaterally OTHER: Patient has a dry, constant cough. Cardio: COMMON NORMALS: regular rhythm and No murmurs present (Cardio) RATE: tachycardic RHYTHM: regular rhythm GI: COMMON NORMALS: Normal to inspection, nondistended, normoactive bowel sounds present, Soft to palpation and non-tender PALPATION: Yes Soft to palpation Extremity: COMMON NORMALS: normal to inspection and full ROM Neuro: SENSORIUM/ORIENTATION: Yes alert Psych: COMMON NORMALS: cooperative Skin: NARRATIVE SKIN EXAM: Patient is noted to have sores all over her body. This appears to be a chronic issue. None are open or bleeding. Course ED course: Patient's main complaint to me today is a cough for the last couple of weeks. Patient reports she coughs until she loses her breath. She also has hypertension. Patient has been without her medications for the last several days at least. Patient is normally on lisinopril at home. We will get a chest x-ray at this time. We will also give clonidine to help lower blood pressure. We will also give patient the normal lisinopril she would take at home. We will also do general labs today. Vital Signs: Vital signs: Vital Signs Temperature 98.2 F 05/29/22 10:03 Pulse Rate 118 H 05/29/22 10:03 Respiratory Rate 16 05/29/22 10:03 Blood Pressure 163/128 05/29/22 13:10 Pulse Oximetry 95 05/29/22 10:03 Oxygen Delivery Me thod 05/29/22 10:03 MDM - Abdominal Pain Medical Decision Making Patient's labs are mostly unremarkable. Urine was contaminated. Patient's chest x-ray was normal. Patient likely has a bronchitis. Will treat with steroids at this time. Blood pressure is elevated today however patient not taking her medications. I will give patient a prescription for lisinopril for the next 2 weeks however she must follow-up with PCP. Patient also needs to stop drinking alcohol as that will also elevate her blood pressure. We will treat bronchitis with azithromycin and steroids. Patient also sent home with a Ventolin inhaler. I did discuss this patient with the childcare aide given the family friend was concerned that patient did not have a home or someone to take care of her. production reproduction manager recommends patient be given resources but because she is her own guardian there is not much we can do otherwise. Patient was highly encouraged to follow-up with a primary care doctor. Return to the ER with new or worsening symptoms. Patient verbalized understanding and was in agreement with the treatment plan. Lab Data 05/29/22 10:55 05/29/22 10:55 Labs/Radiology: Radiology Impressions Chest X-Ray 05/29/22 10:38 Impression: Negative chest. Laboratory Results WBC 6.6 10^3/uL (4.0-10.0) 05/29/22 10:55 RBC 5.14 10^6/uL (4.1-5.3) 05/29/22 10:55 Hgb 14.6 g/dL (11.5-15.3) 05/29/22 10:55 Hct 43.9 % (37.0-47.0) 05/29/22 10:55 MCV 85.4 fl (81-99) 05/29/22 10:55 MCH 28.4 pg (28.0-34.0) 05/29/22 10:55 MCHC 33.3 g/dL (30.0-36.0) 05/29/22 10:55 RDW 15.9 % (12.1-15.1) H 05/29/22 10:55 Plt Count 216 10^3/cmm (130-400) 05/29/22 10:55 MPV 10.0 fL (7.4-10.4) 05/29/22 10:55 Neut % (Auto) 67.3 % 05/29/22 10:55 Lymph % (Auto) 22.9 % 05/29/22 10:55 [place] % (Auto) 6.6 % 05/29/22 10:55 Eos % (Auto) 1.5 % 05/29/22 10:55 Baso % (Auto) 1.2 % 05/29/22 10:55 Neut # (Auto) 4.41 10^3/uL (1.8-7.7) 05/29/22 10:55 Lymph # (Auto) 1.5 10^3/uL (0.8-4.8) 05/29/22 10:55 [place] # (Auto) 0.4 10^3/uL (0.2-0.9) 05/29/22 10:55 Eos # (Auto) 0.1 10^3/uL (0.0-0.8) 05/29/22 10:55 Baso # (Auto) 0.1 10^3/uL (0.0-0.1) 05/29/22 10:55 Nucleated RBC % (auto) 0 % 05/29/22 10:55 Nucleated RBCs # 0.0 /100WBC 05/29/22 10:55 Sodium 136 mmol/L (136-145) 05/29/22 10:55 Potassium 3.2 mmol/L (3.5-5.1) L 05/29/22 10:55 Chloride 99 mmol/L (98-107) 05/29/22 10:55 Carbon Dioxide 26 mmol/L (22-29) 05/29/22 10:55 Anion Gap 14.2 (5-19) 05/29/22 10:55 BUN 9 mg/dL (6-20) 05/29/22 10:55 Creatinine 0.4 mg/dL (0.5-0.9) L 05/29/22 10:55 GFR Calculation 174.2 mL/min (90-130) H 05/29/22 10:55 Glucose 92 mg/dL (65-115) 05/29/22 10:55 Calculated Osmolality 280 mOsm/kg (285-295) L 05/29/22 10:55 Calcium 8.9 mg/dL (8.5-10.5) 05/29/22 10:55 Total Bilirubin 0.8 mg/dL (0.15-1.2) 05/29/22 10:55 AST 24 U/L (0-32) 05/29/22 10:55 ALT 13 U/L (0-33) 05/29/22 10:55 Alkaline Phosphatase 98 U/L (35-105) 05/29/22 10:55 Total Protein 7.5 g/dL (6.6-8.7) 05/29/22 10:55 Albumin 3.7 g/dL (3.5-5.2) 05/29/22 10:55 Globulin 3.8 g/dL (1.3-4.6) 05/29/22 10:55 Lipase 37 U/L (13-60) 05/29/22 10:55 Urine Color Yellow (Yellow) 05/29/22 11:04 Urine Appearance Clear (CLEAR) 05/29/22 11:04 Urine pH 7 (5-7) 05/29/22 11:04 Ur Specific [place] 1.010 (1.005-1.030) 05/29/22 11:04 Urine Protein 2+ (Negative) H 05/29/22 11:04 Urine Glucose (UA) Norm (Normal) 05/29/22 11:04 Urine Ketones 2+ (Negative) H 05/29/22 11:04 Urine Blood Neg (Negative) 05/29/22 11:04 Urine Nitrate Negative (Negative) 05/29/22 11:04 Urine Bilirubin Neg (Negative) 05/29/22 11:04 Urine Urobilinogen 1 mg/dL (Negative) H 05/29/22 11:04 Ur Leukocyte Esterase Negative (Negative) 05/29/22 11:04 Urine RBC 0-4 /hpf (0-2) H 05/29/22 11:04 Urine WBC 0-4 /hpf (0-5) H 05/29/22 11:04 Ur Squamous Epith Cells 5-10 /hpf (0-5) H 05/29/22 11:04 Amorphous Sediment Not Reportable 05/29/22 11:04 Urine Bacteria Trace /hpf (NONE) 05/29/22 11:04 Urine Mucus 1+ /hpf 05/29/22 11:04 Critical Care Time Critical Care Time: Critical Care Time: No Discharge Plan Discharge Patient Disposition: Home Clinical Impression: Bronchitis, Alcoholism Hypertension Qualifiers: Hypertension type: unspecified Qualified Code(s): I10 - Essential (primary) hypertension Condition: Stable Prescriptions: New Medrol (Miguel) 4 mg tablets,dose pack See Rx Instructions .ROUTE .COMPLEX Qty: 21 0RF Rx Instructions: orally per package directions Ventolin HFA 90 mcg/actuation HFA aerosol inhaler 2 inh inhalation Q4H PRN (Reason: shortness of breath or wheezing) Qty: 6.7 0RF Zithromax Z-Miguel 250 mg tablet See Rx Instructions .ROUTE .COMPLEX Qty: 6 0RF Rx Instructions: For 250 mg dose pack: take 500 mg today (day 1), then 250 mg for 4 days (days 2-5) lisinopril 20 mg tablet 10 mg PO DAILY Qty: 14 0RF Discharge Orders: Discharge ED (Routine); Ordered 05/29/22 Ordered By: Destinee Wheeler Discharge Diet: Usual diet Discharge Activity: Resume usual activity Patient Instructions: Opioid Safety, Pain Management Activity Restrictions/Additional Instructions: Alcohol cessation recommended. Alcoholism and abuse will only worsen blood pressure. upkeep worker blood pressure medicine and take as prescribed. Must follow- up with PCP for another refill and to discuss blood pressures. Take steroids and antibiotic for bronchitis, use inhaler for cough. Return to the ER with new or worsening symptoms. Coding Level of Care Code ED Administrator Pesticide for Chg Fwd Exam Comprehensive Documented by User: Myles Mejia DO 05/29/22 13:48 HPI - Abdominal Pain General: Chief Complaint: Abdominal Pain Stated Complaint: HBP Time Seen by Provider: 05/29/22 10:31 [facility] ED PFSH: Medical History Anxiety History of alcohol abuse Hypertension Surgical History History of tubal ligation Social History Smoking and tobacco status: former smoker Alcohol intake: never Course Vital Signs: Vital signs: Vital Signs Temperature 98.2 F 05/29/22 10:03 Pulse Rate 118 H 05/29/22 10:03 Respiratory Rate 16 05/29/22 10:03 Blood Pressure 163/128 05/29/22 13:10 Pulse Oximetry 95 05/29/22 10:03 Oxygen Delivery Me thod 05/29/22 10:03 MDM - Abdominal Pain Medical Decision Making Patient's labs are mostly unremarkable. Urine was contaminated. Patient's chest x-ray was normal. Patient likely has a bronchitis. Will treat with steroids at this time. Blood pressure is elevated today however patient not taking her medications. I will give patient a prescription for lisinopril for the next 2 weeks however she must follow-up with PCP. Patient also needs to stop drinking alcohol as that will also elevate her blood pressure. We will treat bronchitis with azithromycin and steroids. Patient also sent home with a Ventolin inhaler. I did discuss this patient with the childcare aide given the family friend was concerned that patient did not have a home or someone to take care of her. production reproduction manager recommends patient be given resources but because she is her own guardian there is not much we can do otherwise. Patient was highly encouraged to follow-up with a primary care doctor. Return to the ER with new or worsening symptoms. Patient verbalized understanding and was in agreement with the treatment plan. Chart reviewed and patient discussed with midlevel. Agree with assessment and plan. Lab Data 05/29/22 10:55 05/29/22 10:55 Labs/Radiology: Radiology Impressions Chest X-Ray 05/29/22 10:38 Impression: Negative chest. Laboratory Results WBC 6.6 10^3/uL (4.0-10.0) 05/29/22 10:55 RBC 5.14 10^6/uL (4.1-5.3) 05/29/22 10:55 Hgb 14.6 g/dL (11.5-15.3) 05/29/22 10:55 Hct 43.9 % (37.0-47.0) 05/29/22 10:55 MCV 85.4 fl (81-99) 05/29/22 10:55 MCH 28.4 pg (28.0-34.0) 05/29/22 10:55 MCHC 33.3 g/dL (30.0-36.0) 05/29/22 10:55 RDW 15.9 % (12.1-15.1) H 05/29/22 10:55 Plt Count 216 10^3/cmm (130-400) 05/29/22 10:55 MPV 10.0 fL (7.4-10.4) 05/29/22 10:55 Neut % (Auto) 67.3 % 05/29/22 10:55 Lymph % (Auto) 22.9 % 05/29/22 10:55 [place] % (Auto) 6.6 % 05/29/22 10:55 Eos % (Auto) 1.5 % 05/29/22 10:55 Baso % (Auto) 1.2 % 05/29/22 10:55 Neut # (Auto) 4.41 10^3/uL (1.8-7.7) 05/29/22 10:55 Lymph # (Auto) 1.5 10^3/uL (0.8-4.8) 05/29/22 10:55 [place] # (Auto) 0.4 10^3/uL (0.2-0.9) 05/29/22 10:55 Eos # (Auto) 0.1 10^3/uL (0.0-0.8) 05/29/22 10:55 Baso # (Auto) 0.1 10^3/uL (0.0-0.1) 05/29/22 10:55 Nucleated RBC % (auto) 0 % 05/29/22 10:55 Nucleated RBCs # 0.0 /100WBC 05/29/22 10:55 Sodium 136 mmol/L (136-145) 05/29/22 10:55 Potassium 3.2 mmol/L (3.5-5.1) L 05/29/22 10:55 Chloride 99 mmol/L (98-107) 05/29/22 10:55 Carbon Dioxide 26 mmol/L (22-29) 05/29/22 10:55 Anion Gap 14.2 (5-19) 05/29/22 10:55 BUN 9 mg/dL (6-20) 05/29/22 10:55 Creatinine 0.4 mg/dL (0.5-0.9) L 05/29/22 10:55 GFR Calculation 174.2 mL/min (90-130) H 05/29/22 10:55 Glucose 92 mg/dL (65-115) 05/29/22 10:55 Calculated Osmolality 280 mOsm/kg (285-295) L 05/29/22 10:55 Calcium 8.9 mg/dL (8.5-10.5) 05/29/22 10:55 Total Bilirubin 0.8 mg/dL (0.15-1.2) 05/29/22 10:55 AST 24 U/L (0-32) 05/29/22 10:55 ALT 13 U/L (0-33) 05/29/22 10:55 Alkaline Phosphatase 98 U/L (35-105) 05/29/22 10:55 Total Protein 7.5 g/dL (6.6-8.7) 05/29/22 10:55 Albumin 3.7 g/dL (3.5-5.2) 05/29/22 10:55 Globulin 3.8 g/dL (1.3-4.6) 05/29/22 10:55 Lipase 37 U/L (13-60) 05/29/22 10:55 Urine Color Yellow (Yellow) 05/29/22 11:04 Urine Appearance Clear (CLEAR) 05/29/22 11:04 Urine pH 7 (5-7) 05/29/22 11:04 Ur Specific [place] 1.010 (1.005-1.030) 05/29/22 11:04 Urine Protein 2+ (Negative) H 05/29/22 11:04 Urine Glucose (UA) Norm (Normal) 05/29/22 11:04 Urine Ketones 2+ (Negative) H 05/29/22 11:04 Urine Blood Neg (Negative) 05/29/22 11:04 Urine Nitrate Negative (Negative) 05/29/22 11:04 Urine Bilirubin Neg (Negative) 05/29/22 11:04 Urine Urobilinogen 1 mg/dL (Negative) H 05/29/22 11:04 Ur Leukocyte Esterase Negative (Negative) 05/29/22 11:04 Urine RBC 0-4 /hpf (0-2) H 05/29/22 11:04 Urine WBC 0-4 /hpf (0-5) H 05/29/22 11:04 Ur Squamous Epith Cells 5-10 /hpf (0-5) H 05/29/22 11:04 Amorphous Sediment Not Reportable 05/29/22 11:04 Urine Bacteria Trace /hpf (NONE) 05/29/22 11:04 Urine Mucus 1+ /hpf 05/29/22 11:04 Discharge Plan Discharge Patient Disposition: Home Clinical Impression: Bronchitis, Alcoholism Hypertension Qualifiers: Hypertension type: unspecified Qualified Code(s): I10 - Essential (primary) hypertension Condition: Stable Prescriptions: New Medrol (Miguel) 4 mg tablets,dose pack See Rx Instructions .ROUTE .COMPLEX Qty: 21 0RF Rx Instructions: orally per package directions Ventolin HFA 90 mcg/actuation HFA aerosol inhaler 2 inh inhalation Q4H PRN (Reason: shortness of breath or wheezing) Qty: 6.7 0RF Zithromax Z-Miguel 250 mg tablet See Rx Instructions .ROUTE .COMPLEX Qty: 6 0RF Rx Instructions: For 250 mg dose pack: take 500 mg today (day 1), then 250 mg for 4 days (days 2-5) lisinopril 20 mg tablet 10 mg PO DAILY Qty: 14 0RF Discharge Orders: Discharge ED (Routine); Ordered 05/29/22 Ordered By: Destinee Wheeler Discharge Diet: Usual diet Discharge Activity: Resume usual activity Patient Instructions: Opioid Safety, Pain Management Activity Restrictions/Additional Instructions: Alcohol cessation recommended. Alcoholism and abuse will only worsen blood pressure. upkeep worker blood pressure medicine and take as prescribed. Must follow- up with PCP for another refill and to discuss blood pressures. Take steroids and antibiotic for bronchitis, use inhaler for cough. Return to the ER with new or worsening symptoms. Coding Level of Care Code ED Administrator Pesticide for Shani Fwabigail Exam Comprehensive
--- NOTE | 2022-05-29 10:38 | XR_ITS ---
WS: [id number] Portable AP upright chest, 05/29/2022 Clinical Data: cough x 2 weeks Comparison: None. Findings: No nodules, masses or effusions are seen. The heart is normal. The pulmonary vascularity is not increased. No pneumonia or pneumothorax is seen. XR/XR chest 1V portable [id number] Impression: Negative chest.
[2022-05-29] MEDS: lisinopril 20 mg Tablet PO (10:49)
[2022-05-29] MEDS: cloNIDine 0.1 mg Tablet PO ×2 (10:49→12:13)
--- NOTE | 2022-05-29 10:57 | ECG_ITS ---
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 Measurements Intervals [place] Rate: 117 P: 58 TN: 96 QRS: -6 QRSD: 98 T: 71 QT: 320 QTc: 447 Interpretive Statements SINUS TACHYCARDIA WITH SHORT TN INTERVAL ABNORMAL RHYTHM ECG Compared to ECG 04/04/2022 20:00:44 Short TN interval now present Incomplete right bundle-branch block no longer present T-wave abnormality no longer present Electronically Signed On 05-29-2022 13:06:36 GLASS ENAMEL MIXER by Arlyn Mehta M.D. [id number]
[2022-05-29 11:06] LABS: Basophils # 0.1 10^3/uL (0.0-0.1); Basophils % 1.2 %; Eosinophils # 0.1 10^3/uL (0.0-0.8); Eosinophils % 1.5 %; Hematocrit 43.9 % (37.0-47.0); Hemoglobin 14.6 g/dL (11.5-15.3); Lymphocytes # 1.5 10^3/uL (0.8-4.8); Lymphocytes % 22.9 %; Mean Corpuscular HGB Conc 33.3 g/dL (30.0-36.0); Mean Corpuscular Hemoglobin 28.4 pg (28.0-34.0); Mean Corpuscular Volume 85.4 fl (81-99); Monocytes # 0.4 10^3/uL (0.2-0.9); Monocytes % 6.6 %; Neutrophils # 4.41 10^3/uL (1.8-7.7); Neutrophils % 67.3 %; Nucleated Red Blood Cells % 0 %; Platelet Count 216 10^3/cmm (130-400); Red Blood Count 5.14 10^6/uL (4.1-5.3); Red Cell Distribution Width 15.9 % (12.1-15.1); White Blood Count 6.6 10^3/uL (4.0-10.0)
[2022-05-29 11:19] LABS: Alanine Aminotransferase 13 U/L (0-33); Albumin Level 3.7 g/dL (3.5-5.2); Alkaline Phosphatase 98 U/L (35-105); Anion Gap 14.2 (5-19); Aspartate Amino Transferase 24 U/L (0-32); Blood Urea Nitrogen 9 mg/dL (6-20); Calcium 8.9 mg/dL (8.5-10.5); Carbon Dioxide 26 mmol/L (22-29); Chloride 99 mmol/L (98-107); Globulin 3.8 g/dL (1.3-4.6); Glomerular Filtration Rate 174.2 mL/min (90-130); Glucose 92 mg/dL (65-115); Lipase 37 U/L (13-60); Osmolality Calculated 280 mOsm/kg (285-295); Potassium 3.2 mmol/L (3.5-5.1); Sodium 136 mmol/L (136-145); Total Bilirubin 0.8 mg/dL (0.15-1.2); Total Protein 7.5 g/dL (6.6-8.7)
[2022-05-29 11:36] LABS: Add Urine Microscopic? YES; Bacteria Urine TRACE /hpf; Bilirubin Urine Neg (Negative); Blood Urine Neg (Negative); Glucose Urine UA Norm (Normal); Ketones Urine 2+ (Negative); Leukocyte Esterase Urine Negative (Negative); Mucus Urine 1+ /hpf; Nitrate Urine Negative (Negative); Protein Urine 2+ (Negative); RBC Urine 0-4 /hpf (0-2); Urine Appearance Clear (CLEAR); Urine Color Yellow (Yellow); Urobilinogen Urine 1 mg/dL (Negative); WBC Urine 0-4 /hpf (0-5); pH Urine 7 (5-7)
[2022-05-29 12:13] VITALS: BP 183/110
[2022-05-29 13:10] VITALS: BP 163/128
[2022-05-29] MEDS: labetalol 200 mg Tablet 100 MG PO (13:23)
== END 2022-05-29 13:27 | disposition home or self-care (01) ==
PROVIDERS: Emergency Provider Physician Assistant
DX: J40 Bronchitis, not specified as acute or chronic (principal); I10 Essential (primary) hypertension; F10.20 Alcohol dependence, uncomplicated; Z87.891 Personal history of nicotine dependence
CPT/HCPCS: 36415; 71045; 80053; 81001; 83690; 85025; 93005; 99285

== ENCOUNTER 2022-07-03 19:40 | Emergency (ER) | payer MEDICAID, SELFPAY ==
[2022-07-03 20:04] VITALS: BP 195/122; PULSE 86; RESP 18; TEMP 37.1; O2SAT 96; BMI 31.4
[2022-07-03 20:04] LABS: Basophils # 0.1 10^3/uL (0.0-0.1); Basophils % 0.8 %; Eosinophils # 0.1 10^3/uL (0.0-0.8); Eosinophils % 0.8 %; Hematocrit 48.8 % (37.0-47.0); Hemoglobin 15.7 g/dL (11.5-15.3); Lymphocytes # 2.3 10^3/uL (0.8-4.8); Lymphocytes % 25.1 %; Mean Corpuscular HGB Conc 32.2 g/dL (30.0-36.0); Mean Corpuscular Hemoglobin 28.5 pg (28.0-34.0); Mean Corpuscular Volume 88.7 fl (81-99); Monocytes # 0.4 10^3/uL (0.2-0.9); Monocytes % 4.6 %; Neutrophils # 6.34 10^3/uL (1.8-7.7); Neutrophils % 68.4 %; Nucleated Red Blood Cells % 0 %; Platelet Count 273 10^3/cmm (130-400); Red Cell Distribution Width 15.7 % (12.1-15.1); White Blood Count 9.3 10^3/uL (4.0-10.0)
[2022-07-03 20:08] VITALS: BP 206/140; PULSE 82; RESP 16; O2SAT 97
--- NOTE | 2022-07-03 20:11 | XR_ITS ---
WS: [id number] ABDOMEN 1 VIEW(S) HISTORY: constipation COMPARISON: None available. Normal bowel gas pattern. No suspicious calcifications or masses. Small phlebolith LEFT pelvis. No bone abnormality. XR/XR KUB [id number] IMPRESSION: Normal abdomen.
--- NOTE | 2022-07-03 20:13 | W.ED.NAVMDI ---
HPI - Nausea/Vomiting/Diarrhea General: Chief complaint: Nausea/Vomiting/Diarrhea Stated complaint: abdomen pain, nausea Time Seen by Provider: 07/03/22 20:10 History of Present Illness: 41-year-old female comes in today for complaints of nausea and vomiting some abdominal discomfort. Patient has a recurrent episodes of abdominal pain. Patient is a chronic alcoholic. Patient appears nontoxic. Patient appears in mild pain. Associated nausea: Yes Associated symtoms: Reports nausea Review of Systems GI: Reports: abdominal pain and nausea PFSH ED PFSH: Medical History Anxiety History of alcohol abuse Hypertension Surgical History History of tubal ligation Social History Smoking and tobacco status: former smoker Alcohol intake: never Female Reproductive History: Date of last menstrual period: 12/20/21 Physical Exam Const: COMMON NORMALS: alert HENMT: COMMON NORMALS: normocephalic HEAD & SCALP: normocephalic Neck/C-Spine: COMMON NORMALS: full ROM Resp: COMMON NORMALS: normal respiratory effort and clear to auscultation bilaterally AUSCULTATION: clear to auscultation bilaterally Cardio: COMMON NORMALS: regular rate and regular rhythm RATE: regular rate RHYTHM: regular rhythm GI: AUSCULTATION: Yes normoactive bowel sounds PALPATION: No Tenderness to palpation present (GI) : COMMON NORMALS: Yes no CVA tenderness BLADDER/KIDNEY EXAM: Yes no CVA tenderness Back/Pelvis: COMMON NORMALS: no CVA tenderness Extremity: COMMON NORMALS: normal to inspection Neuro: SENSORIUM/ORIENTATION: Yes alert Skin: COMMON NORMALS: turgor normal GENERAL SKIN EXAM: turgor normal Course Vital Signs: Vital signs: Vital Signs Temperature 98.7 F 07/03/22 20:04 Pulse Rate 86 07/03/22 21:18 Respiratory Rate 16 07/03/22 20:50 Blood Pressure 206/132 07/03/22 21:18 Pulse Oximetry 94 07/03/22 21:18 Oxygen Delivery Me thod 07/03/22 20:08 MDM - Nausea/Vomiting/Diarrhea Medical Decision Making 41-year-old female comes in today with complaints of epigastric abdominal pain and episodes of nausea. On exam abdomen soft nontender. Bowel sounds are present. Skin is warm and dry. Vital signs are normal except for elevated blood pressure. Differential diagnosis includes but not limited to gastroenteritis, gastritis, gallbladder disease, pancreatitis, dehydration. Laboratory values were unremarkable. X-ray of the abdomen was normal. Reviewed exam with patient with recommendations for treatment for gastritis. Patient has a long history of alcoholism and suspect chronic gastritis. No signs of severe illness or surgical abdomen. Recommend patient start on pantoprazole for gastritis and use Zofran for nausea. Patient reported understanding agreed to follow-up or return as needed. Lab Data 07/03/22 19:58 07/03/22 19:58 Radiology Impressions KUB X-Ray 07/03/22 20:11 IMPRESSION: Normal abdomen. Laboratory Results WBC 9.3 10^3/uL (4.0-10.0) 07/03/22 19:58 RBC 5.50 10^6/uL (4.1-5.3) H 07/03/22 19:58 Hgb 15.7 g/dL (11.5-15.3) H 07/03/22 19:58 Hct 48.8 % (37.0-47.0) H 07/03/22 19:58 MCV 88.7 fl (81-99) 07/03/22 19:58 MCH 28.5 pg (28.0-34.0) 07/03/22 19:58 MCHC 32.2 g/dL (30.0-36.0) 07/03/22 19:58 RDW 15.7 % (12.1-15.1) H 07/03/22 19:58 Plt Count 273 10^3/cmm (130-400) 07/03/22 19:58 MPV 10.0 fL (7.4-10.4) 07/03/22 19:58 Neut % (Auto) 68.4 % 07/03/22 19:58 Lymph % (Auto) 25.1 % 07/03/22 19:58 [place] % (Auto) 4.6 % 07/03/22 19:58 Eos % (Auto) 0.8 % 07/03/22 19:58 Baso % (Auto) 0.8 % 07/03/22 19:58 Neut # (Auto) 6.34 10^3/uL (1.8-7.7) 07/03/22 19:58 Lymph # (Auto) 2.3 10^3/uL (0.8-4.8) 07/03/22 19:58 [place] # (Auto) 0.4 10^3/uL (0.2-0.9) 07/03/22 19:58 Eos # (Auto) 0.1 10^3/uL (0.0-0.8) 07/03/22 19:58 Baso # (Auto) 0.1 10^3/uL (0.0-0.1) 07/03/22 19:58 Nucleated RBC % (auto) 0 % 07/03/22 19:58 Nucleated RBCs # 0.0 /100WBC 07/03/22 19:58 Sodium 134 mmol/L (136-145) L 07/03/22 19:58 Potassium 4.1 mmol/L (3.5-5.1) 07/03/22 19:58 Chloride 97 mmol/L (98-107) L 07/03/22 19:58 Carbon Dioxide 27 mmol/L (22-29) 07/03/22 19:58 Anion Gap 14.1 (5-19) 07/03/22 19:58 BUN 17 mg/dL (6-20) 07/03/22 19:58 Creatinine 0.5 mg/dL (0.5-0.9) 07/03/22 19:58 GFR Calculation 134.7 mL/min (90-130) H 07/03/22 19:58 Glucose 144 mg/dL (65-115) H 07/03/22 19:58 Calculated Osmolality 282 mOsm/kg (285-295) L 07/03/22 19:58 Calcium 9.8 mg/dL (8.5-10.5) 07/03/22 19:58 Total Bilirubin 0.5 mg/dL (0.15-1.2) 07/03/22 19:58 AST 20 U/L (0-32) 07/03/22 19:58 ALT 18 U/L (0-33) 07/03/22 19:58 Alkaline Phosphatase 90 U/L (35-105) 07/03/22 19:58 Total Protein 7.9 g/dL (6.6-8.7) 07/03/22 19:58 Albumin 4.4 g/dL (3.5-5.2) 07/03/22 19:58 Globulin 3.5 g/dL (1.3-4.6) 07/03/22 19:58 Lipase 58 U/L (13-60) 07/03/22 19:58 HCG, Qual Negative (Negative) 07/03/22 19:58 Urine Color Yellow (Yellow) 07/03/22 21:15 Urine Appearance Clear (CLEAR) 07/03/22 21:15 Urine pH 7 (5-7) 07/03/22 21:15 Ur Specific [place] 1.010 (1.005-1.030) 07/03/22 21:15 Urine Protein Neg (Negative) 07/03/22 21:15 Urine Glucose (UA) Norm (Normal) 07/03/22 21:15 Urine Ketones Negative (Negative) 07/03/22 21:15 Urine Blood 2+ (Negative) H 07/03/22 21:15 Urine Nitrate Negative (Negative) 07/03/22 21:15 Urine Bilirubin Neg (Negative) 07/03/22 21:15 Urine Urobilinogen Neg mg/dL (Negative) 07/03/22 21:15 Ur Leukocyte Esterase Negative (Negative) 07/03/22 21:15 Urine RBC 0-4 /hpf (0-2) H 07/03/22 21:15 Urine WBC 0-4 /hpf (0-5) H 07/03/22 21:15 Ur Squamous Epith Cells 25-40 /hpf (0-5) H 07/03/22 21:15 Amorphous Sediment 1+ /hpf 07/03/22 21:15 Urine Bacteria Trace /hpf (NONE) 07/03/22 21:15 Urine Mucus 2+ /hpf 07/03/22 21:15 Ethyl Alcohol < 10 mg/dL (0-10) 07/03/22 19:58 Discharge Plan Discharge Patient Disposition: Home Clinical Impression: Gastritis Qualifiers: Gastritis type: unspecified gastritis Chronicity: unspecified Gastritis bleeding: without bleeding Qualified Code(s): K29.70 - Gastritis, unspecified, without bleeding Condition: Stable Prescriptions: New pantoprazole 40 mg tablet,delayed release (DR/EC) 40 mg PO DAILY 28 Days Qty: 30 0RF ondansetron 4 mg tablet,disintegrating 4 mg PO Q8H PRN (Reason: nausea and vomiting) Qty: 10 0RF No Action Medrol (Miguel) 4 mg tablets,dose pack See Rx Instructions .ROUTE .COMPLEX Qty: 21 0RF Rx Instructions: orally per package directions Ventolin HFA 90 mcg/actuation HFA aerosol inhaler 2 inh inhalation Q4H PRN (Reason: shortness of breath or wheezing) Qty: 6.7 0RF Zithromax Z-Miguel 250 mg tablet See Rx Instructions .ROUTE .COMPLEX Qty: 6 0RF Rx Instructions: For 250 mg dose pack: take 500 mg today (day 1), then 250 mg for 4 days (days 2-5) lisinopril 20 mg tablet 10 mg PO DAILY Qty: 14 0RF Discharge Orders: Discharge ED (Routine); Ordered 07/03/22 Ordered By: Juancarlos Wallis Discharge Diet: Advance as tolerated Discharge Activity: Increase activity as tolerated Patient Instructions: Gastritis (ED) Activity Restrictions/Additional Instructions: Activity as tolerated. Drink plenty of fluids. Take medication, pantoprazole, daily about 30 minutes prior to the first meal of the day. Use ondansetron as needed for nausea or vomiting. Healthy diet and activity. Follow-up with primary care in 2 to 3 days for recheck. Return to ED for worsening symptoms such as fever greater than 100.4, blood in vomit or stool, or new concerns. Coding Level of Care Code ED Judicial Law Clerk for Shani Fwd Exam Comprehensive
[2022-07-03 20:17] LABS: HCG, Serum Qual Negative (Negative)
[2022-07-03 20:20] LABS: Alanine Aminotransferase 18 U/L (0-33); Albumin Level 4.4 g/dL (3.5-5.2); Alkaline Phosphatase 90 U/L (35-105); Anion Gap 14.1 (5-19); Aspartate Amino Transferase 20 U/L (0-32); Blood Urea Nitrogen 17 mg/dL (6-20); Calcium 9.8 mg/dL (8.5-10.5); Carbon Dioxide 27 mmol/L (22-29); Chloride 97 mmol/L (98-107); Globulin 3.5 g/dL (1.3-4.6); Glomerular Filtration Rate 134.7 mL/min (90-130); Glucose 144 mg/dL (65-115); Lipase 58 U/L (13-60); Osmolality Calculated 282 mOsm/kg (285-295); Potassium 4.1 mmol/L (3.5-5.1); Sodium 134 mmol/L (136-145); Total Bilirubin 0.5 mg/dL (0.15-1.2); Total Protein 7.9 g/dL (6.6-8.7)
[2022-07-03 20:50] VITALS: RESP 16; O2SAT 97
[2022-07-03] MEDS: ondansetron 2 mg/ML SDV 2 mL 4 MG IVP (20:50)
[2022-07-03] MEDS: morphine 4 mg/mL SDV 1 mL 2 MG IVP (20:50)
[2022-07-03] MEDS: sodium chloride 0.9% 500 ML 999 ML IV (20:53)
[2022-07-03] MEDS: pantoprazole 40 mg SDV IVP (21:01)
[2022-07-03 21:15] LABS: Alcohol Level < 10 mg/dL (0-10)
[2022-07-03 21:18] VITALS: BP 206/132; PULSE 86; O2SAT 94
[2022-07-03 21:31] LABS: Glucose Urine UA Norm (Normal); Ketones Urine Negative (Negative); Protein Urine Neg (Negative); Urine Appearance Clear (CLEAR); Urine Color Yellow (Yellow); pH Urine 7 (5-7)
[2022-07-03 21:32] LABS: Add Urine Microscopic? YES; Bilirubin Urine Neg (Negative); Blood Urine 2+ (Negative); Leukocyte Esterase Urine Negative (Negative); Nitrate Urine Negative (Negative); Urobilinogen Urine Neg (Negative)
[2022-07-03 21:35] LABS: Add Urine Culture? No; Amorphous Sediment Urine 1+ /hpf; Bacteria Urine TRACE /hpf; Mucus Urine 2+ /hpf; RBC Urine 0-4 /hpf (0-2); Squamous Epithelial Cell Urine 25-40 /hpf (0-5); WBC Urine 0-4 /hpf (0-5)
[2022-07-03 21:54] VITALS: BP 193/120; PULSE 75; RESP 16; O2SAT 95
== END 2022-07-03 22:03 | disposition home or self-care (01) ==
PROVIDERS: Emergency Medicine; Emergency Provider Nurse Practitioner Family
DX: K29.70 Gastritis, unspecified, without bleeding (principal); I10 Essential (primary) hypertension; Z87.891 Personal history of nicotine dependence
CPT/HCPCS: 36415; 74018; 80053; 80307; 81001; 83690; 84703; 85025; 96361; 96374; 96375; 99284; C9113; J2270; J2405; J7030

== ENCOUNTER 2022-09-15 11:14 | Emergency (ER) | payer MEDICAID, SELFPAY ==
[2022-09-15] VITALS (8 sets, daily range): BP systolic 168–222; BP diastolic 94–149; PULSE 89–95; RESP 16–22; TEMP 37.1; O2SAT 97–99; BMI 33.0
--- NOTE | 2022-09-15 11:24 | ED_ITS ---
HPI - Abdominal Pain General: Chief Complaint: Abdominal Pain Stated Complaint: ABD PAIN Time Seen by Provider: 09/15/22 11:23 Source: patient Mode of arrival: EMS Limitations: no limitations History of Present Illness: Patient is a 42-year-old female who presents to ED today with a complaint of abdominal pain over the last several days. Patient states she has a history of similar abdominal pains and states she has been diagnosed with gastritis and pancreatitis in the past. She states these are se condary to alcohol use. Patient states she has not drink alcohol in approximately 3 to 4 days. She states she is having multiple episodes of nonbloody emesis. She reports she feels incredibly nauseous currently. She is having normal bowel movements and passing flatulence. She has not been running fevers. No urinary complaints. She states her pain currently feels like previous episodes. MD elicited complaint: abdominal pain Pertinent past history: gastritis and other (pancreatitis ) Onset (ago): day(s) Pain Consistency: constant Location: Diffuse Severity: moderate Quality: cramping and sharp Radiation: none Migration to: no migration Exacerbating factors: eating Relieving factors: nothing Associated Symptoms: Reports nausea and vomiting; Denies chills, dysuria, fever(s), hematochezia, hematuria, hematemesis and melena Related Data: Patient : No Review of Systems Const: Denies: fever(s), chills, body aches, fatigue or malaise Card: Denies: chest pain Resp: Denies: dyspnea GI: Reports: abdominal pain, nausea and vomiting; Denies: hematemesis, hematochezia, melena or mucus in stool : Denies: flank pain, dysuria or hematuria Musc: Denies: back pain Neuro: Denies: headache(s) or dizziness [facility] PFSH: Medical History Anxiety History of alcohol abuse Hypertension Surgical History History of tubal ligation Social History Smoking and tobacco status: former smoker Alcohol intake: never Physical Exam Const: COMMON NORMALS: no acute distress, patient oriented x3, no limitations, alert and well nourished GENERAL APPEARANCE: cooperative ORIENTATION/CONSCIOUSNESS: Yes awake, Yes oriented to person, Yes oriented to place and Yes oriented to time HENMT: COMMON NORMALS: normocephalic and atraumatic HEAD & SCALP: normal to inspection, normocephalic and atraumatic Resp: COMMON NORMALS: normal respiratory effort and clear to auscultation bilaterally AUSCULTATION: clear to auscultation bilaterally Cardio: COMMON NORMALS: regular rate and regular rhythm RATE: regular rate RHYTHM: regular rhythm GI: COMMON NORMALS: Normal to inspection, nondistended, normoactive bowel sounds present, Soft to palpation, No hepatosplenomegaly present and no masses INSPECTION: Yes normal to inspection AUSCULTATION: Yes normoactive bowel sounds PALPATION: Yes Soft to palpation, Yes Tenderness to palpation present (GI) (diffusely-non surgical examination ), No Guarding due to palpation present (GI), No Rigid due to palpation and Yes No hepatosplenomegaly present : COMMON NORMALS: Yes no CVA tenderness BLADDER/KIDNEY EXAM: Yes no CVA tenderness Back/Pelvis: COMMON NORMALS: no CVA tenderness, thoracic and lumbar spine normal to inspection, no thoracic nor lumbar tenderness and thoraco-lumbar ROM normal Extremity: COMMON NORMALS: normal to inspection GENERAL: Yes normal exam except as noted Neuro: ELIA COMA SCALE: document GCS findings Elia coma scale eye opening: Spontaneous Elia coma scale verbal response: Orientated [place] coma scale motor response: Obey commands Elia coma scale total score: 15 COMMON NORMALS: patient oriented x3, moves all extremities, no focal motor deficits and no sensory deficits noted SENSORIUM/ORIENTATION: Yes alert, Yes oriented to person, Yes oriented to place and Yes oriented to time Skin: COMMON NORMALS: no rashes or lesions noted GENERAL SKIN EXAM: no rashes or lesions noted Course Vital Signs: Vital signs: Vital Signs Temperature 98.7 F 09/15/22 11:15 Pulse Rate 89 09/15/22 12:47 Respiratory Rate 16 09/15/22 12:47 Blood Pressure 168/112 09/15/22 12:47 Pulse Oximetry 97 09/15/22 12:47 Oxygen Delivery Me thod 09/15/22 12:08 MDM - Abdominal Pain Medical Decision Making Patient is a 42-year-old female here for complaints of generalized abdominal pain, nausea, vomiting. Vital signs are stable upon arrival apart from signific ant hypertension. Looking at several previous blood pressure readings it looks like patient has chronic significant elevations with baseline systolics anywhere from 160-200. She admittedly is noncompliant with her medications. She was told she needs to follow-up with her primary care provider in regards to this. Her lab work here is unremarkable. CT scan without acute or emergent findings. Has not had any episodes of vomiting while here. RN has checked on patient multiple times and she is resting comfortably in her bed. Recommend she follow- up with primary care in the next 2 to 3 days if abdominal pain persists. Return ED precautions given. Lab Data 09/15/22 11:49 09/15/22 11:49 Labs/Radiology: Radiology Impressions Abdomen/Pelvis CT 09/15/22 12:27 IMPRESSION: 1. Hepatomegaly with diffuse fatty infiltration of the liver. 2. Small esophageal hiatal hernia. 3. Normal appendix 4. Peripheral enhancing RIGHT corpus luteum cyst measuring 1.6 cm. 5. Mild to moderate transverse colon and sigmoid constipation. 6. Bilateral renal cysts some of which are hyperdense but not significantly changed compared to previous. Recommend continued surveillance. 7. No other suspicious findings. Laboratory Results WBC 10.8 10^3/uL (4.0-10.0) H 09/15/22 11:49 RBC 5.49 10^6/uL (4.1-5.3) H 09/15/22 11:49 Hgb 16.0 g/dL (11.5-15.3) H 09/15/22 11:49 Hct 48.4 % (37.0-47.0) H 09/15/22 11:49 MCV 88.2 fl (81-99) 09/15/22 11:49 MCH 29.1 pg (28.0-34.0) 09/15/22 11:49 MCHC 33.1 g/dL (30.0-36.0) 09/15/22 11:49 RDW 14.3 % (12.1-15.1) 09/15/22 11:49 Plt Count 268 10^3/cmm (130-400) 09/15/22 11:49 MPV 10.7 fL (7.4-10.4) H 09/15/22 11:49 Neut % (Auto) 73.8 % 09/15/22 11:49 Lymph % (Auto) 19.5 % 09/15/22 11:49 [place] % (Auto) 4.0 % 09/15/22 11:49 Eos % (Auto) 1.4 % 09/15/22 11:49 Baso % (Auto) 0.9 % 09/15/22 11:49 Neut # (Auto) 8.01 10^3/uL (1.8-7.7) H 09/15/22 11:49 Lymph # (Auto) 2.1 10^3/uL (0.8-4.8) 09/15/22 11:49 [place] # (Auto) 0.4 10^3/uL (0.2-0.9) 09/15/22 11:49 Eos # (Auto) 0.2 10^3/uL (0.0-0.8) 09/15/22 11:49 Baso # (Auto) 0.1 10^3/uL (0.0-0.1) 09/15/22 11:49 Nucleated RBC % (auto) 0 % 09/15/22 11:49 Nucleated RBCs # 0.0 /100WBC 09/15/22 11:49 Sodium 137 mmol/L (136-145) 09/15/22 11:49 Potassium 3.7 mmol/L (3.5-5.1) 09/15/22 11:49 Chloride 99 mmol/L (98-107) 09/15/22 11:49 Carbon Dioxide 24 mmol/L (22-29) 09/15/22 11:49 Anion Gap 17.7 (5-19) 09/15/22 11:49 BUN 15 mg/dL (6-20) 09/15/22 11:49 Creatinine 0.5 mg/dL (0.5-0.9) 09/15/22 11:49 GFR Calculation 134.0 mL/min (90-130) H 09/15/22 11:49 Glucose 120 mg/dL (65-115) H 09/15/22 11:49 Calculated Osmolality 286 mOsm/kg (285-295) 09/15/22 11:49 Calcium 9.1 mg/dL (8.5-10.5) 09/15/22 11:49 Total Bilirubin 0.5 mg/dL (0.15-1.2) 09/15/22 11:49 AST 27 U/L (0-32) 09/15/22 11:49 ALT 23 U/L (0-33) 09/15/22 11:49 Alkaline Phosphatase 75 U/L (35-105) 09/15/22 11:49 Total Protein 7.4 g/dL (6.6-8.7) 09/15/22 11:49 Albumin 4.0 g/dL (3.5-5.2) 09/15/22 11:49 Globulin 3.4 g/dL (1.3-4.6) 09/15/22 11:49 Lipase 43 U/L (13-60) 09/15/22 11:49 Urine Color Yellow (Yellow) 09/15/22 11:34 Urine Appearance Clear (CLEAR) 09/15/22 11:34 Urine pH 7 (5-7) 09/15/22 11:34 Ur Specific [place] 1.010 (1.005-1.030) 09/15/22 11:34 Urine Protein 3+ (Negative) H 09/15/22 11:34 Urine Glucose (UA) Trace (Normal) H 09/15/22 11:34 Urine Ketones Negative (Negative) 09/15/22 11:34 Urine Blood Neg (Negative) 09/15/22 11:34 Urine Nitrate Negative (Negative) 09/15/22 11:34 Urine Bilirubin Neg (Negative) 09/15/22 11:34 Urine Urobilinogen Neg mg/dL (Negative) 09/15/22 11:34 Ur Leukocyte Esterase Negative (Negative) 09/15/22 11:34 Urine RBC Rare /hpf (0-2) 09/15/22 11:34 Urine WBC None /hpf (0-5) 09/15/22 11:34 Ur Squamous Epith Cells 0-4 /hpf (0-5) H 09/15/22 11:34 Amorphous Sediment 1+ /hpf 09/15/22 11:34 Urine Bacteria None /hpf (NONE) 09/15/22 11:34 Urine Mucus Trace /hpf 09/15/22 11:34 Ethyl Alcohol < 10 mg/dL (0-10) 09/15/22 11:49 Discharge Plan Discharge Patient Disposition: Home Clinical Impression: History of alcohol abuse, Chronic hypertension Abdominal pain Qualifiers: Abdominal location: generalized Qualified Code(s): R10.84 - Generalized abdominal pain Condition: Stable Prescriptions: New ondansetron 4 mg tablet,disintegrating 4 mg PO Q8H PRN (Reason: nausea and vomiting) Qty: 14 0RF Discharge Orders: Discharge ED (Routine); Ordered 09/15/22 Ordered By: Lacey Olson Patient Instructions: Abdominal Pain (ED) Coding Level of Care Code ED 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
[2022-09-15] MEDS: lisinopril 10 mg Tablet PO (12:01)
[2022-09-15] MEDS: lidocaine 2% viscous 15 ML, aluminum-mag hydrox-simethicon 30 ML, sucralfate oral liq 1 GM PO (12:02)
[2022-09-15] MEDS: sodium chloride 0.9% 1,000 ML 999 ML IV (12:04)
[2022-09-15] MEDS: ondansetron 2 mg/ML SDV 2 mL 4 MG IVP (12:05)
[2022-09-15] MEDS: hyDRALAzine 20 mg/mL INJ 1 mL 10 MG IVP (12:06)
[2022-09-15] MEDS: morphine 4 mg/mL SDV 1 mL IVP ×2 (12:06→14:10)
[2022-09-15 12:08] LABS: Basophils # 0.1 10^3/uL (0.0-0.1); Basophils % 0.9 %; Eosinophils # 0.2 10^3/uL (0.0-0.8); Eosinophils % 1.4 %; Hematocrit 48.4 % (37.0-47.0); Lymphocytes # 2.1 10^3/uL (0.8-4.8); Lymphocytes % 19.5 %; Mean Corpuscular HGB Conc 33.1 g/dL (30.0-36.0); Mean Corpuscular Hemoglobin 29.1 pg (28.0-34.0); Mean Corpuscular Volume 88.2 fl (81-99); Mean Platelet Volume 10.7 fL (7.4-10.4); Monocytes # 0.4 10^3/uL (0.2-0.9); Neutrophils # 8.01 10^3/uL (1.8-7.7); Neutrophils % 73.8 %; Nucleated Red Blood Cells % 0 %; Platelet Count 268 10^3/cmm (130-400); Red Blood Count 5.49 10^6/uL (4.1-5.3); Red Cell Distribution Width 14.3 % (12.1-15.1); White Blood Count 10.8 10^3/uL (4.0-10.0)
[2022-09-15 12:26] LABS: Alanine Aminotransferase 23 U/L (0-33); Alkaline Phosphatase 75 U/L (35-105); Anion Gap 17.7 (5-19); Aspartate Amino Transferase 27 U/L (0-32); Blood Urea Nitrogen 15 mg/dL (6-20); Calcium 9.1 mg/dL (8.5-10.5); Carbon Dioxide 24 mmol/L (22-29); Chloride 99 mmol/L (98-107); Globulin 3.4 g/dL (1.3-4.6); Glucose 120 mg/dL (65-115); Lipase 43 U/L (13-60); Osmolality Calculated 286 mOsm/kg (285-295); Potassium 3.7 mmol/L (3.5-5.1); Sodium 137 mmol/L (136-145); Total Bilirubin 0.5 mg/dL (0.15-1.2); Total Protein 7.4 g/dL (6.6-8.7)
--- NOTE | 2022-09-15 12:27 | CT_ITS ---
WS: [id number] CT ABDOMEN PELVIS TECHNIQUE: Contrast-enhanced CT of the abdomen and pelvis with coronal and sagittal reformatted image s. CLINICAL INFORMATION: abdominal pain, N/V COMPARISON: CT 04/11 DLP: 623.[address] scans at [facility] use at least one of these dose optimization techniques: automated e xposure control; mA and/or kV adjustment per patient size (includes targeted exams where dose is matc hed to clinical indication); or iterative reconstruction. FINDINGS: Hepatomegaly. Diffuse fatty infiltration liver. Normal portal vein and splenic vein. Normal pancreas. Normal spleen. Small esophageal hiatal hernia. Lung bases are well aerated. Normal gallbladder. Norm al caliber abdominal aorta. Celiac and SMA are patent. Normal renal parenchymal enhancement. No hydro nephrosis. Incidental bilateral renal cysts. A few hyperdense cysts likely proteinaceous or hemorrhag ic unchanged from previous. Celiac and SMA are patent. Normal portal vein and splenic vein. Normal caliber abdominal aorta. Sigmo id diverticulosis. No evidence of acute diverticulitis. No free fluid in the abdomen or pelvis. Trans verse colon and cecal constipation. Grade 1 anterolisthesis L4 on L5. Small peripheral enhancing RIGH T corpus luteum cyst measuring 1.[address]/CT abdomen pelvis w con* [id number] IMPRESSION: 1. Hepatomegaly with diffuse fatty infiltration of the liver. 2. Small esophageal hiatal hernia. 3. Normal appendix 4. Peripheral enhancing RIGHT corpus luteum cyst measuring 1.6 cm. 5. Mild to moderate transverse colon and sigmoid constipation. 6. Bilateral renal cysts some of which are hyperdense but not significantly ch anged compared to previous. Recommend continued surveillance. 7. No other suspicious findings.
[2022-09-15 12:31] LABS: Alcohol Level < 10 mg/dL (0-10)
[2022-09-15 12:39] LABS: Slide Review Slide Review Perform
[2022-09-15 12:52] LABS: Add Urine Microscopic? YES; Bilirubin Urine Neg (Negative); Blood Urine Neg (Negative); Glucose Urine UA Trace (Normal); Ketones Urine Negative (Negative); Leukocyte Esterase Urine Negative (Negative); Nitrate Urine Negative (Negative); Protein Urine 3+ (Negative); RBC Urine RARE /hpf (0-2); Squamous Epithelial Cell Urine 0-4 /hpf (0-5); Urine Appearance Clear (CLEAR); Urine Color Yellow (Yellow); Urobilinogen Urine Neg (Negative); pH Urine 7 (5-7)
[2022-09-15 12:53] LABS: Add Urine Culture? No; Amorphous Sediment Urine 1+ /hpf; Mucus Urine TRACE /hpf
[2022-09-15] MEDS: iohexol 350 mg/mL 500 mL Btl (per mL) IV (13:05)
[2022-09-15] MEDS: enalaprilat 1.25 mg/mL Inj 0.625 MG IVP (13:14)
[2022-09-15] MEDS: metoclopramide 5 mg/mL SDV 2 mL 10 MG IVP (14:10)
== END 2022-09-15 14:22 | disposition home or self-care (01) ==
PROVIDERS: Emergency Provider Physician Assistant
DX: R10.84 Generalized abdominal pain (principal); I10 Essential (primary) hypertension; F10.10 Alcohol abuse, uncomplicated; K76.0 Fatty (change of) liver, not elsewhere classified; K44.9 Diaphragmatic hernia without obstruction or gangrene; Z87.891 Personal history of nicotine dependence
CPT/HCPCS: 74177; 80053; 80307; 81001; 83690; 85025; 96374; 96375; 96376; 99285; J0360; J2270; J2405; J2765; J3490; J7030; Q9967

== ENCOUNTER 2022-11-14 21:11 | Emergency (ER) | payer MEDICAID, SELFPAY ==
[2022-11-14 21:18] VITALS: BP 187/130; PULSE 108; RESP 18; TEMP 36.4; O2SAT 95; BMI 28.3
--- NOTE | 2022-11-14 21:20 | ECG_ITS ---
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 Measurements Intervals [place] Rate: 109 P: 59 PA: 141 QRS: -4 QRSD: 84 T: 71 QT: 328 QTc: 442 Interpretive Statements SINUS TACHYCARDIA RIGHT ATRIAL ENLARGEMENT [0.3mV P-WAVE] NONSPECIFIC T-WAVE ABNORMALITY Compared to ECG 05/29/2022 10:57:13 Atrial abnormality now present T-wave abnormality now present Short PA interval no longer present Electronically Signed On 11-15-2022 8:01:12 CDT by Vahid Hackett M.D. [id number]
--- NOTE | 2022-11-14 21:26 | ED_ITS ---
HPI - Abdominal Pain General: Chief Complaint: Abdominal Pain Stated Complaint: ABD PAIN Time Seen by Provider: 11/14/22 21:13 Source: patient and EMS Mode of arrival: EMS Limitations: no limitations History of Present Illness: 42-year-old female has a long history of alcoholism she has history of alcohol gastritis as well as states she been having some epigastric burning pain throughout the day. States the pain is currently a 4 out of 10. She had some hypertension as well she takes clonidine at home. And lisinopril. She denies any fevers denies any worsening improving factors no vomiting no diarrhea. Associated Symptoms: Denies chills, dysuria and fever(s) Review of Systems Const: Denies: fever(s), chills, body aches or change in appetite ENMT: Denies: throat pain or dental pain Card: Denies: chest pain Resp: Denies: dyspnea GI: Reports: abdominal pain : Denies: dysuria Musc: Denies: neck pain or back pain Skin/Breast: Denies: rash Neuro: Denies: headache(s) Psych: Denies: depression PFSH ED PFSH: Medical History Acute alcoholic gastritis Anxiety GERD (gastroesophageal reflux disease) History of alcohol abuse Hypertension Hypertensive crisis Surgical History History of tubal ligation Social History Smoking and tobacco status: former smoker Alcohol intake: never Substance/Drug Use: never Physical Exam Const: COMMON NORMALS: no acute distress, patient oriented x3 and healthy appearing HENMT: COMMON NORMALS: normocephalic and atraumatic HEAD & SCALP: normocephalic and atraumatic Eye: COMMON NORMALS: Equal, round and reactive pupils present PUPIL: Yes Equal, round and reactive pupils present Neck/C-Spine: COMMON NORMALS: full ROM and supple Chest: COMMONS NORMALS: normal inspection of the chest and normal palpation of entire chest wall Resp: COMMON NORMALS: normal respiratory effort, No retractions, No use of accessory muscles and clear to auscultation bilaterally AUSCULTATION: clear to auscultation bilaterally Cardio: COMMON NORMALS: regular rate, regular rhythm and No murmurs present (Cardio) RATE: regular rate RHYTHM: regular rhythm GI: COMMON NORMALS: Normal to inspection, nondistended, normoactive bowel sounds present, Soft to palpation, non-tender and no masses PALPATION: Yes Soft to palpation Extremity: COMMON NORMALS: normal to inspection and full ROM Neuro: COMMON NORMALS: patient oriented x3, moves all extremities and no focal motor deficits Psych: COMMON NORMALS: mental status grossly normal, Normal thought process present and cooperative THOUGHT PROCESS: Normal thought process present Skin: COMMON NORMALS: no rashes or lesions noted and no wounds GENERAL SKIN EXAM: no rashes or lesions noted Course Vital Signs: Vital signs: Vital Signs Temperature 97.6 F 11/14/22 21:18 Pulse Rate 85 11/14/22 22:54 Respiratory Rate 18 11/14/22 22:54 Blood Pressure 207/139 11/14/22 22:54 Pulse Oximetry 99 11/14/22 22:54 MDM - Abdominal Pain Medical Decision Making Patient presents with abdominal pain is likely gastritis she has been in no pain here well-appearing blood work here is all normal exam is benign no signs of acute surgical abdomen she has had some hypertension we will start her on Norvasc to go along with her other blood pressure meds she is to follow-up with PCP and return if worsening. Medical Records I reviewed the patient's medical records. Lab Data I reviewed the patient's lab results. 11/14/22 21:40 11/14/22 21:40 Labs/Radiology: Laboratory Results WBC 11.4 10^3/uL (4.0-10.0) H 11/14/22 21:40 RBC 5.32 10^6/uL (4.1-5.3) H 11/14/22 21:40 Hgb 15.6 g/dL (11.5-15.3) H 11/14/22 21:40 Hct 47.5 % (37.0-47.0) H 11/14/22 21:40 MCV 89.3 fl (81-99) 11/14/22 21:40 MCH 29.3 pg (28.0-34.0) 11/14/22 21:40 MCHC 32.8 g/dL (30.0-36.0) 11/14/22 21:40 RDW 14.1 % (12.1-15.1) 11/14/22 21:40 Plt Count 298 10^3/cmm (130-400) 11/14/22 21:40 MPV 10.5 fL (7.4-10.4) H 11/14/22 21:40 Neut % (Auto) 66.2 % 11/14/22 21:40 Lymph % (Auto) 25.2 % 11/14/22 21:40 [place] % (Auto) 5.3 % 11/14/22 21:40 Eos % (Auto) 2.0 % 11/14/22 21:40 Baso % (Auto) 0.9 % 11/14/22 21:40 Neut # (Auto) 7.56 10^3/uL (1.8-7.7) 11/14/22 21:40 Lymph # (Auto) 2.9 10^3/uL (0.8-4.8) 11/14/22 21:40 [place] # (Auto) 0.6 10^3/uL (0.2-0.9) 11/14/22 21:40 Eos # (Auto) 0.2 10^3/uL (0.0-0.8) 11/14/22 21:40 Baso # (Auto) 0.1 10^3/uL (0.0-0.1) 11/14/22 21:40 Nucleated RBC % (auto) 0 % 11/14/22 21:40 Nucleated RBCs # 0.0 /100WBC 11/14/22 21:40 Sodium 138 mmol/L (136-145) 11/14/22 21:40 Potassium 3.2 mmol/L (3.5-5.1) L 11/14/22 21:40 Chloride 101 mmol/L (98-107) 11/14/22 21:40 Carbon Dioxide 24 mmol/L (22-29) 11/14/22 21:40 Anion Gap 16.2 (5-19) 11/14/22 21:40 BUN 16 mg/dL (6-20) 11/14/22 21:40 Creatinine 0.8 mg/dL (0.5-0.9) 11/14/22 21:40 GFR Calculation 77.9 mL/min (90-130) L 11/14/22 21:40 Glucose 141 mg/dL (65-115) H 11/14/22 21:40 Calculated Osmolality 290 mOsm/kg (285-295) 11/14/22 21:40 Calcium 9.6 mg/dL (8.5-10.5) 11/14/22 21:40 Total Bilirubin 0.5 mg/dL (0.15-1.2) 11/14/22 21:40 AST 20 U/L (0-32) 11/14/22 21:40 ALT 18 U/L (0-33) 11/14/22 21:40 Alkaline Phosphatase 66 U/L (35-105) 11/14/22 21:40 Total Protein 7.6 g/dL (6.6-8.7) 11/14/22 21:40 Albumin 4.3 g/dL (3.5-5.2) 11/14/22 21:40 Globulin 3.3 g/dL (1.3-4.6) 11/14/22 21:40 Lipase 40 U/L (13-60) 11/14/22 21:40 HCG, Qual Negative (Negative) 11/14/22 21:40 Urine Color Yellow (Yellow) 11/14/22 21:44 Urine Appearance Cloudy (CLEAR) A 11/14/22 21:44 Urine pH 5 (5-7) 11/14/22 21:44 Ur Specific [place] 1.025 (1.005-1.030) 11/14/22 21:44 Urine Protein 1+ (Negative) H 11/14/22 21:44 Urine Glucose (UA) Norm (Normal) 11/14/22 21:44 Urine Ketones Negative (Negative) 11/14/22 21:44 Urine Blood 2+ (Negative) H 11/14/22 21:44 Urine Nitrate Negative (Negative) 11/14/22 21:44 Urine Bilirubin 1+ (Negative) H 11/14/22 21:44 Urine Urobilinogen Norm mg/dL (Negative) 11/14/22 21:44 Ur Leukocyte Esterase 2+ (Negative) H 11/14/22 21:44 Urine RBC 5-10 /hpf (0-2) H 11/14/22 21:44 Urine WBC 15-25 /hpf (0-5) H 11/14/22 21:44 Ur Squamous Epith Cells 0-4 /hpf (0-5) H 11/14/22 21:44 Amorphous Sediment Not Reportable 11/14/22 21:44 Urine Bacteria Trace /hpf (NONE) 11/14/22 21:44 Urine Mucus 2+ /hpf 11/14/22 21:44 Ethyl Alcohol < 10 mg/dL (0-10) 11/14/22 21:40 EKG Data EKG 1: I personally reviewed and interpreted this EKG as follows: EKG interpretation date: 11/14/22 EKG interpretation time: 21:31 Interpretation: sinus tach hr [address] or t wave abnormalities qrs 84 qtc 392 Discharge Plan Discharge Patient Disposition: Home Clinical Impression: Abdominal pain, Hypertension Condition: Stable Prescriptions: New Norvasc 5 mg tablet 5 mg PO DAILY Qty: 30 0RF ondansetron 4 mg tablet,disintegrating 4 mg PO Q6H PRN (Reason: nausea and vomiting) Qty: 14 0RF No Action pantoprazole 40 mg tablet,delayed release (DR/EC) 40 mg PO DAILY Qty: 30 3RF clonidine HCl 0.1 mg tablet 0.1 mg PO BID Qty: 60 1RF lisinopril 20 mg tablet 20 mg PO DAILY Qty: 30 1RF ondansetron 4 mg tablet,disintegrating 4 mg PO Q8H PRN (Reason: nausea and vomiting) Qty: 14 0RF Discharge Orders: Discharge ED (Routine); Ordered 11/14/22 Ordered By: Jim Murphy Discharge Diet: Advance as tolerated Discharge Activity: Resume usual activity Patient Instructions: Abdominal Pain (ED), Hypertension (ED) Coding Level of Care Code ED Scale 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
[2022-11-14] MEDS: sodium chloride 0.9% 1,000 ML 999 ML IV (21:38)
[2022-11-14] MEDS: lidocaine 2% viscous 15 ML, aluminum-mag hydrox-simethicon 30 ML, sucralfate oral liq 1 GM PO (21:41)
[2022-11-14] MEDS: labetalol 5 mg/mL SDV 20mL 10 MG IVP (21:45)
[2022-11-14 21:47] VITALS: BP 165/103; PULSE 88; RESP 16; O2SAT 99
[2022-11-14 22:02] VITALS: BP 199/130; PULSE 86; RESP 18; O2SAT 97
[2022-11-14 22:03] LABS: Basophils # 0.1 10^3/uL (0.0-0.1); Basophils % 0.9 %; Eosinophils # 0.2 10^3/uL (0.0-0.8); Hematocrit 47.5 % (37.0-47.0); Hemoglobin 15.6 g/dL (11.5-15.3); Lymphocytes # 2.9 10^3/uL (0.8-4.8); Lymphocytes % 25.2 %; Mean Corpuscular HGB Conc 32.8 g/dL (30.0-36.0); Mean Corpuscular Hemoglobin 29.3 pg (28.0-34.0); Mean Corpuscular Volume 89.3 fl (81-99); Mean Platelet Volume 10.5 fL (7.4-10.4); Monocytes # 0.6 10^3/uL (0.2-0.9); Monocytes % 5.3 %; Neutrophils # 7.56 10^3/uL (1.8-7.7); Neutrophils % 66.2 %; Nucleated Red Blood Cells % 0 %; Platelet Count 298 10^3/cmm (130-400); Red Blood Count 5.32 10^6/uL (4.1-5.3); Red Cell Distribution Width 14.1 % (12.1-15.1); White Blood Count 11.4 10^3/uL (4.0-10.0)
[2022-11-14 22:15] LABS: Specific Gravity, Urine 1.025 (1.005-1.030); Urine Appearance Cloudy (CLEAR); Urine Color Yellow (Yellow); pH Urine 5 (5-7)
[2022-11-14 22:16] LABS: Bilirubin Urine 1+ (Negative); Blood Urine 2+ (Negative); Glucose Urine UA Norm (Normal); Ketones Urine Negative (Negative); Nitrate Urine Negative (Negative); Protein Urine 1+ (Negative); Urobilinogen Urine Norm (Negative)
[2022-11-14 22:17] LABS: Add Urine Microscopic? YES; Leukocyte Esterase Urine 2+ (Negative)
[2022-11-14 22:18] LABS: Squamous Epithelial Cell Urine 0-4 /hpf (0-5)
[2022-11-14 22:19] LABS: Bacteria Urine TRACE /hpf; Mucus Urine 2+ /hpf
[2022-11-14 22:20] LABS: Add Urine Culture? Yes; WBC Urine 15-25 /hpf (0-5)
[2022-11-14 22:24] LABS: Alanine Aminotransferase 18 U/L (0-33); Albumin Level 4.3 g/dL (3.5-5.2); Alkaline Phosphatase 66 U/L (35-105); Anion Gap 16.2 (5-19); Aspartate Amino Transferase 20 U/L (0-32); Blood Urea Nitrogen 16 mg/dL (6-20); Calcium 9.6 mg/dL (8.5-10.5); Carbon Dioxide 24 mmol/L (22-29); Chloride 101 mmol/L (98-107); Globulin 3.3 g/dL (1.3-4.6); Glomerular Filtration Rate 77.9 mL/min (90-130); Glucose 141 mg/dL (65-115); Lipase 40 U/L (13-60); Osmolality Calculated 290 mOsm/kg (285-295); Potassium 3.2 mmol/L (3.5-5.1); Sodium 138 mmol/L (136-145); Total Bilirubin 0.5 mg/dL (0.15-1.2); Total Protein 7.6 g/dL (6.6-8.7)
[2022-11-14 22:25] LABS: Alcohol Level < 10 mg/dL (0-10)
[2022-11-14] MEDS: hyDRALAzine 20 mg/mL INJ 1 mL 10 MG IVP (22:46)
[2022-11-14] MEDS: ondansetron 2 mg/ML SDV 2 mL 4 MG IVP (22:52)
[2022-11-14 22:54] VITALS: BP 207/139; PULSE 85; RESP 18; O2SAT 99
[2022-11-14 22:55] LABS: HCG, Serum Qual Negative (Negative)
--- NOTE | 2022-11-20 12:27 | DCPLANNER ---
manager sql was triggered to call patient due to no primary care physician - patient sees Dr. Frey.
== END 2022-11-14 23:12 | disposition home or self-care (01) ==
PROVIDERS: Emergency Provider Emergency Medicine; PCP Family Medicine Adult Medicine
DX: R10.13 Epigastric pain (principal); I10 Essential (primary) hypertension; Z87.891 Personal history of nicotine dependence
CPT/HCPCS: 36415; 80053; 80307; 81001; 83690; 84703; 85025; 87077; 87086; 87186; 93005; 96361; 96374; 96375; 99284; J0360; J2405; J3490; J7030

== ENCOUNTER 2022-11-15 00:37 | Emergency (ER) | payer MEDICAID, SELFPAY ==
--- NOTE | 2022-11-20 12:31 | DCPLANNER ---
dietary services manager was triggered to call patient due to no primary care physician - patient sees Dr. Frey.
== END 2022-11-15 00:46 | disposition left against medical advice (07) ==
LOC: ER 00:45
PROVIDERS: Emergency Provider Family Medicine
DX: Z53.21 Procedure and treatment not carried out due to patient leaving prior to being seen by health care provider (principal)